=== PATIENT | male | born 1960 | race Caucasian/White ===

== ENCOUNTER → 2019-04-06 11:52 | Outpatient (CLI) | payer BC, SELFPAY ==
--- NOTE | 2019-04-06 12:05 | ECG_ITS ---
APPROVED REPORT Exam: Resting ECG HR:62 bpm ECG Measurements Heart Rate 62 AXES OK 146 P 30 QRSd 108 QRS 53 QT 452 T 72 QTc 458 <Conclusion> Normal sinus rhythm with sinus arrhythmia Normal ECG Electronically signed by : Salvador Pickens, 04/06/2019 18:28:23
== END ==
PROVIDERS: PCP Nurse Practitioner Family; Visit Provider Nurse Practitioner Family
DX: I49.9 Cardiac arrhythmia, unspecified (principal)
CPT/HCPCS: 93005

== ENCOUNTER → 2019-06-23 12:34 | Outpatient (CLI) | payer BC, SELFPAY ==
--- NOTE | 2019-06-23 12:40 | XR_ITS ---
PROCEDURE: XR LUMBAR SPINE MIN 4V CLINICAL INDICATION: ACUTE LT LBP Acute left-sided low back pain COMPARISON: CXR CHEST(2 VIEWS-NOT PORTABLE) from 09/09/2013 FINDINGS: There is slight loss of height anteriorly L1 which appears chronic with degenerative changes in the lower thoracic, T12-L1, L2-L3 L4-5 and L5-S1. There are facet arthritic changes at L5-S1. No acute fracture or dislocation. There is mild sclerosis of the left SI joint partial fusion of the right SI joint.. IMPRESSION: Degenerative changes of the thoracic and lumbar spine and SI joints Dictated by: Ricardo Sandoval MD 06/23/2019 18:24 Electronically signed by Ricardo Sandoval MD in [facility] 06/23/2019 18:24
--- NOTE | 2019-06-23 12:40 | XR_ITS ---
PROCEDURE: XR HIP LT 2-3V W/PELVIS CLINICAL INDICATION: LT HIP PAIN COMPARISON: No exams were available for comparison FINDINGS: No fracture or dislocation is evident. No significant degenerative change. No lytic or blastic change. Unremarkable soft tissues. There are minimal osteoarthritic changes of the left hip as well as mild sclerosis of the mid aspect of the left SI joint. IMPRESSION: Mild osteoarthritic changes of the left hip Dictated by: Ricardo Sandoval MD 06/23/2019 18:25 Electronically signed by Ricardo Sandoval MD in [facility] 06/23/2019 18:25
== END ==
PROVIDERS: PCP Family Medicine; Visit Provider Family Medicine
DX: M25.552 Pain in left hip (principal); M54.5 Low back pain
CPT/HCPCS: 72110; 73502

== ENCOUNTER → 2019-07-20 10:10 | Outpatient (CLI) | payer BC, SELFPAY ==
--- NOTE | 2019-07-20 10:15 | XR_ITS ---
PROCEDURE: XR FOOT RT MIN 3V CLINICAL INDICATION: PAIN OF RT HEEL PAIN Right heel pain COMPARISON: FTR3 FOOT-RT-3 VIEWS from 04/11/2014 FINDINGS: No fracture or dislocation. No lytic or blastic change. There is normal mineralization. Osteoarthritic changes are present at the 1st MTP joint. There is a small calcaneal spur without erosive change. Enthesophyte is present at the Achilles insertion. Small calcific density is present anteriorly at the tarsal metatarsal junction within the soft tissues. There are mild degenerative changes of the ankle. Other findings:None. IMPRESSION: Degenerative changes, no acute finding Dictated by: Ricardo Sandovla MD 07/20/2019 10:51 Electronically signed by Ricardo Sandoval MD in [facility] 07/20/2019 10:51
== END ==
PROVIDERS: PCP Family Medicine; Visit Provider Family Medicine
DX: M79.671 Pain in right foot (principal)
CPT/HCPCS: 73630

== ENCOUNTER 2020-03-26 20:31 | Emergency (ER) | payer BC, SELFPAY ==
[2020-03-26 20:40] VITALS: BP 138/88; PULSE 88; RESP 18; TEMP 36.9; O2SAT 97; BMI 41.3
[2020-03-26 20:41] VITALS: BMI 42.7
--- NOTE | 2020-03-26 20:42 | CT_ITS ---
PROCEDURE: CT ABDOMEN PELVIS W CON CLINICAL INDICATION: RIGHT SIDE PAIN X 3 DAYS, VOMITING Right-sided abdominal pain for 3 days with constipation and vomiting COMPARISON: No exams were available for comparison TECHNIQUE: IV Contrast: 75ML Isovue 370 Oral Contrast None Axial images obtained with sagittal and coronal reformats. All CT scans at the facility use one or more dose reduction, viz: automated exposure control, ma/kV adjustment per patient size (including targeted exams where dose is matched to indication, i.e. head), or iterative reconstruction technique. FINDINGS: The atelectatic changes are present in the right middle lobe. Prior cholecystectomy. The liver, spleen, adrenal glands, pancreas, and kidneys have an unremarkable appearance. No intestinal obstruction or free air. No evidence of appendicitis or diverticulitis. No acute bony anomaly. There is some increased density within the left inguinal canal with some stranding of the fat which could be postsurgical changes/possible small seroma. Scattered small nodes are present in the inguinal areas on both sides. IMPRESSION: 1. No acute finding. 2. Postsurgical changes left inguinal canal with possible small seroma at approximately 16 mm. Dictated by: Ricardo Sandoval MD 03/27/2020 00:07 Ricardo Sandoval MD in [facility] 03/27/2020 00:07
[2020-03-26 20:58] LABS: Basophils # 0.1 K/mm3 (0-0.2); Basophils % 0.9 % (0.1-2.0); Eosinophils # 0.3 K/mm3 (0.0-0.4); Hematocrit 50.5 % (42.0-52.0); Hemoglobin 17.2 g/dL (14.1-18.0); Lymphocytes # 2.6 K/mm3 (0.7-4.5); Lymphocytes % 32.7 % (10-50); Mean Corpuscular HGB Conc 34.1 g/dL (31.8-35.4); Mean Corpuscular Hemoglobin 31.3 pg (27.0-31.2); Mean Corpuscular Volume 91.7 fl (80-94); Mean Platelet Volume 9.1 fl (7.4-10.4); Monocytes # 0.5 K/mm3 (0.1-1.0); Monocytes % 6.2 % (1.7-9.3); Neutrophils # 4.5 K/mm3 (1.8-7.8); Neutrophils % 56.2 % (37.0-80.0); Platelet Count 246 K/mm3 (142-424); Red Blood Count 5.51 M/mm3 (4.60-6.20); Red Cell Distribution Width 13.8 % (11.5-17.5)
--- NOTE | 2020-03-26 21:07 | HMH.EDNVD ---
ED Disposition Clinical Impression: Right-sided chest wall pain Disposition: Home, Self-Care Condition on Discharge: Good Instructions: DI for Acute Abdomen Additional Instructions: use meds and recheck if needed Referrals: Ludwin Hernandez MD [Primary Care Provider] - - Critical Care Critical Care Time: No Attestation: On 03/26/20, the high probability of a clinically significant, sudden or life threatening deterioration of the following system(s) required my full and direct attention, intervention and personal management. The time I documented below is in addition to time spent performing reported procedures but includes the following listed in this critical care notation. Medical Decision Making - Medical Records Medical records reviewed: Yes: I reviewed the patient's medical records. - Julien Inquiry Pt receiving controlled substance: No Vital Signs: 03/26/20 20:40 03/26/20 22:41 03/26/20 23:38 Temperature 98.4 F Temperature Source Oral Pulse Rate [Right] 88 73 75 Respiratory Rate 18 18 18 Blood Pressure [Right Arm] 138/88 135/91 H 143/88 H Blood Pressure Mean [Right Arm] 104 105 106 Blood Pressure Source [Right Arm] Automatic Cuff Blood Pressure Position [Right Arm] Sitting 02 Sat by Pulse Oximetry 97 96 97 Oxygen Delivery Method Room Air Room Air - Lab Data Lab results reviewed: Yes: I reviewed the patient's lab results. Lab Results 03/26/20 20:51: WBC 8.0, RBC 5.51, Hgb 17.2, Hct 50.5, MCV 91.7, MCH 31.3 H, MCHC 34.1, RDW 13.8, Plt Count 246, MPV 9.1, Neut % (Auto) 56.2, Lymph % (Auto) 32.7, [place] % (Auto) 6.2, Eos % (Auto) 4.0, Baso % (Auto) 0.9, Neut # (Auto) 4.5, Lymph # (Auto) 2.6, [place] # (Auto) 0.5, Eos # (Auto) 0.3, Baso # (Auto) 0.1 03/26/20 20:51: Sodium 141, Potassium 3.8, Chloride 104, Carbon Dioxide 26, Anion Gap 14.8, BUN 12, Creatinine 0.90, Estimated Creat Clear 88, Estimated GFR 86, Est GFR ( Amer) 105, Glucose 139 H, Calcium 9.5, Total Bilirubin 0.6, AST 24, ALT 23, Alkaline Phosphatase 63, Total Protein 7.3, Albumin 4.6, Globulin 2.7, Albumin/Globulin Ratio 1.7, Amylase 73, Lipase 94 03/26/20 23:26: Urine Color Yellow, Urine Appearance Clear, Urine pH 6.0, Ur Specific [place] 1.015, Urine Protein Negative, Urine Glucose (UA) 1+, Urine Ketones Negative, Urine Blood Negative, Urine Nitrate Negative, Urine Bilirubin Negative, Urine Urobilinogen 0.2, Ur Leukocyte Esterase Negative, Amorphous Sediment Trace Result diagrams: 03/26/20 20:51 03/26/20 20:51 Orders (Tests/Meds): ED MEDICATIONS Generic Name Dose Route Start Last Admin Trade Name Freq PRN Reason Stop Dose Admin Sodium Chloride 1,000 mls @ 999 mls/hr 03/26/20 20:45 03/26/20 20:49 Sod Chlor 0.9% 1000ml Bag IV 03/26/20 21:45 999 mls/hr .Q1H1M ALMAZ Administration Discontinued Medications Generic Name Dose Route Start Last Admin Trade Name Freq PRN Reason Stop Dose Admin Ketorolac Tromethamine 30 mg 03/26/20 20:43 03/26/20 20:49 Ketorolac 30mg/Ml Vial IV 03/26/20 20:44 30 mg ONCE ONE Administration Methylprednisolone Sodium Succinate 125 mg 03/26/20 22:54 03/26/20 22:58 Methylprednisolone Sod Succ 125mg Vial IV 03/26/20 22:55 125 mg ONCE ONE Administration Morphine Sulfate 4 mg 03/26/20 22:54 03/26/20 22:58 Morphine 4mg/Ml Syringe IV 03/26/20 22:55 4 mg ONCE ONE Administration Ondansetron HCl 4 mg 03/26/20 20:43 03/26/20 20:49 Ondansetron 4mg/2ml Vial IV 03/26/20 20:44 4 mg ONCE ONE Administration Promethazine HCl 25 mg 03/26/20 22:54 03/26/20 22:58 Promethazine Hcl 25mg/Ml 1ml Vial IV 03/26/20 22:55 25 mg ONCE ONE Administration Sodium Chloride 25 ml 03/26/20 22:54 03/26/20 23:09 Sodium Chloride 0.9% 25ml Bag IV 03/26/20 22:55 25 ml ONCE ONE Administration ORDERS Category Date Time Status CT abdomen pelvis w con Stat Cat Scan 03/26/20 20:42 Taken - CT Data CT Scan: Abdomen, Pelvis Time Received: 23:5
[2020-03-26 21:08] LABS: Alanine Aminotransferase 23 U/L (12-78); Albumin Level 4.6 g/dl (3.5-5.0); Albumin/Globulin Ratio 1.7 (1.1-1.8); Alkaline Phosphatase 63 U/L (38-126); Amylase 73 U/L (30-110); Anion Gap 14.8 mEq/L (5-15); Aspartate Amino Transferase 24 U/L (17-59); Bilirubin,Total 0.6 mg/dl (0.2-1.3); Blood Urea Nitrogen 12 mg/dl (9-20); Calcium 9.5 mg/dl (8.4-10.2); Carbon Dioxide 26 mmol/L (22.0-30.0); Chloride 104 mmol/L (98-107); Creatinine Clearance Estimated 88 mL/min (50-200); Estimated Glomerular Filt Rate 86 ml/min (>60); GFR (African American) 105 ML/MIN (>60); Globulin 2.7 g/dL (1.3-3.2); Glucose 139 mg/dl (74-100); Lipase 94 U/L (23-300); Potassium 3.8 mmoL/L (3.5-5.1); Sodium 141 mmol/L (136-145); Total Protein,Serum 7.3 g/dl (6.3-8.2)
[2020-03-26 22:41] VITALS: BP 135/91; PULSE 73; RESP 18; O2SAT 96
[2020-03-26 23:28] LABS: Microscopic, Urine URINE MICROSCOPIC (MICROSCOPIC)
[2020-03-26 23:30] LABS: Appearance,Urine CLEAR (Clear); Bilirubin,Urine Negative (Negative); Blood, Urine Negative (Negative); Color,Urine YELLOW (Yellow); Glucose,Urine (UA) 1+ (Negative); Ketones,Urine Negative (Negative); Leukocyte Esterase,Urine Negative (Negative); Nitrate,Urine Negative (Negative); Protein,Urine Negative (Negative); Specific Gravity, Urine 1.015 (1.005-1.030); Urobilinogen,Urine 0.2 EU/dl (0.2)
[2020-03-26 23:32] LABS: Amorphous Sediment,Urine Trace /lpf
[2020-03-26 23:38] VITALS: BP 143/88; PULSE 75; RESP 18; O2SAT 97
[2020-03-27 00:02] VITALS: BP 142/79; PULSE 81; RESP 16; TEMP 36.8; O2SAT 99
== END 2020-03-27 00:08 | disposition home or self-care (01) ==
PROVIDERS: Emergency Provider Emergency Medicine; PCP Family Medicine
DX: R07.89 Other chest pain (principal); I10 Essential (primary) hypertension; E11.9 Type 2 diabetes mellitus without complications; E78.5 Hyperlipidemia, unspecified; I48.0 Paroxysmal atrial fibrillation; Z79.899 Other long term (current) drug therapy
CPT/HCPCS: 74177; 80053; 81001; 82150; 83690; 85025; 96365; 99282; J2405

== ENCOUNTER 2020-06-19 08:08 | Emergency (ER) | payer BC, SELFPAY ==
[2020-06-19 08:10] VITALS: BP 141/89; PULSE 96; RESP 16; TEMP 37.3; O2SAT 98; BMI 39.0
--- NOTE | 2020-06-19 08:19 | HMH.EDGENADL ---
ED Disposition Clinical Impression: Left otitis media with effusion Disposition: Home, Self-Care Condition on Discharge: Good Instructions: DI for Middle Ear Infection-Adult Additional Instructions: Take antibiotic as prescribed. Follow-up with primary care provider if not improved in 3 to 4 days. Prescriptions: Amoxicillin [Amoxicillin 500mg Cap] 500 mg PO TID #30 cap Transmission Status: Pending to [id number] Referrals: Ludwin Hernandez MD [Primary Care Provider] - - Critical Care Critical Care Time: No Attestation: On 06/19/20, the high probability of a clinically significant, sudden or life threatening deterioration of the following system(s) required my full and direct attention, intervention and personal management. The time I documented below is in addition to time spent performing reported procedures but includes the following listed in this critical care notation. Medical Decision Making - Julien Inquiry Pt receiving controlled substance: No Vital Signs: 06/19/20 08:10 Temperature 99.1 F Temperature Source Oral Pulse Rate [Radial] 96 H Respiratory Rate 16 Blood Pressure [Right Arm] 141/89 H Blood Pressure Mean [Right Arm] 106 Blood Pressure Position [Right Arm] Sitting 02 Sat by Pulse Oximetry 98 Oxygen Delivery Method Room Air General Adult HPI - General Stated complaint: Left ear hurting, cough Time Seen by Provider: 06/19/20 08:19 - History of Present Illness HPI narrative: Coughing congestion, sinus drainage, left earache for about 1 week. Says he feels fluid behind his eardrum around. Says that he gets this once a year at this time of the year each year and usually gets amoxicillin for an ear infection. No fever. He says that he just got out of quarantine for being exposed to COVID-19, his had a. 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 - Related Data Home Medications Medication Instructions Recorded Confirmed atorvastatin 40 mg tablet 40 mg PO DAILY 30 Days #30 tab 02/01/18 10/31/18 colchicine 0.6 mg tablet 0.6 mg PO DAILY 30 Days #30 tab 02/01/18 10/31/18 diltiazem HCl 240 mg 240 mg PO DAILY 30 Days #30 cap 02/01/18 10/31/18 capsule,extended release 24 hr febuxostat 40 mg tablet 40 mg PO DAILY 30 Days #30 tab 02/01/18 10/31/18 isosorbide mononitrate 30 mg 30 mg PO DAILY 30 Days #30 tab 02/01/18 10/31/18 tablet,extended release 24 hr lisinopril 20 mg tablet 20 mg PO DAILY 30 Days #30 tab 02/01/18 10/31/18 rivaroxaban 20 mg tablet 20 mg PO DAILY 30 Days #30 tab 02/01/18 10/31/18 Previous Rx's Medication Instructions Recorded benzonatate 100 mg capsule 100 mg PO TID PRN #30 cap 02/01/18 Amoxicillin [Amoxicillin 500mg 500 mg PO TID #30 cap 06/19/20 Cap] Allergies Allergy/AdvReac Type Severity Reaction Status Date / Time No Known Allergies Allergy Verified 03/26/20 21:08 [facility] History - Hepatitis A Screen Attestation statement:: This patient has been screened for Hepatitis A risk factors. I have reviewed the patient's past medical history: Yes Medical History: Reports:: Atrial Fibrillation, Diabetes Mellitus Type 2, Hyperlipidemia, Hypertension, Lung Disease Denies:: Diabetes Mellitus Type 1, Internal Pacemaker, Seizures Other Medical History: Denies: Blood Transfusion Reaction Comment: GOUT Other Surgeries: Yes: Cardiac Catheterization, Colonoscopy, Hernia Repair. No: Pacemaker Amputation: No Fractures: No - Social History Smoking Status: Never smoker Tobacco Type: smokeless tobacco # Packs/Day (cigarettes): 0 Alcohol Intake: never Substance Use Type: denies use Occupational Status: employed Housing: house Household Members: spouse Family Hx:: Unable to obtain ROS Obtained: Yes Systems reviewed as appropriate & no additional complaints - Constitutional Constitutional: Denies fever(s) - ENT Ears, Nose, Mouth, and Throat: R
[2020-06-19 08:39] VITALS: BP 135/74; PULSE 78; RESP 16; TEMP 36.6; O2SAT 98
== END 2020-06-19 08:40 | disposition home or self-care (01) ==
PROVIDERS: Emergency Provider Emergency Medicine; PCP Family Medicine
DX: H65.92 Unspecified nonsuppurative otitis media, left ear (principal); I10 Essential (primary) hypertension; I48.91 Unspecified atrial fibrillation; E78.5 Hyperlipidemia, unspecified; E11.9 Type 2 diabetes mellitus without complications; Z79.899 Other long term (current) drug therapy
CPT/HCPCS: 99281

== ENCOUNTER → 2020-06-22 13:41 | Outpatient (CLI) | payer BC, SELFPAY ==
[2020-06-22 13:52] LABS: Basophils # 0.1 K/mm3 (0-0.2); Basophils % 1.1 % (0.1-2.0); Eosinophils # 0.3 K/mm3 (0.0-0.4); Eosinophils % 4.4 % (0.1-12.0); Hematocrit 50.6 % (42.0-52.0); Hemoglobin 16.8 g/dL (14.1-18.0); Lymphocytes # 1.7 K/mm3 (0.7-4.5); Mean Corpuscular HGB Conc 33.3 g/dL (31.8-35.4); Mean Corpuscular Volume 93.3 fl (80-94); Mean Platelet Volume 10.4 fl (7.4-10.4); Monocytes # 0.4 K/mm3 (0.1-1.0); Monocytes % 6.8 % (1.7-9.3); Neutrophils # 3.9 K/mm3 (1.8-7.8); Neutrophils % 60.7 % (37.0-80.0); Platelet Count 311 K/mm3 (142-424); Red Blood Count 5.42 M/mm3 (4.60-6.20); Red Cell Distribution Width 14.4 % (11.5-17.5); White Blood Count 6.4 K/mm3 (4.8-10.8)
[2020-06-22 13:57] LABS: Alanine Aminotransferase 28 U/L (12-78); Albumin Level 4.1 g/dl (3.5-5.0); Albumin/Globulin Ratio 1.5 (1.1-1.8); Alkaline Phosphatase 59 U/L (38-126); Anion Gap 10.2 mEq/L (5-15); Aspartate Amino Transferase 35 U/L (17-59); Bilirubin,Total 0.6 mg/dl (0.2-1.3); Blood Urea Nitrogen 8 mg/dl (9-20); Calcium 9.2 mg/dl (8.4-10.2); Carbon Dioxide 31 mmol/L (22.0-30.0); Chloride 101 mmol/L (98-107); Chol/HDL Ratio 7.5 (1-3.5); Cholesterol 196 mg/dl (140-200); Estimated Glomerular Filt Rate 115 ml/min (>60); GFR (African American) 140 ML/MIN (>60); Globulin 2.8 g/dL (1.3-3.2); Glucose 128 mg/dl (74-100); HDL Cholesterol 26 mg/dl (40-60); Potassium 4.2 mmoL/L (3.5-5.1); Sodium 138 mmol/L (136-145); Total Protein,Serum 6.9 g/dl (6.3-8.2); Triglycerides 229 mg/dl (30-150); VLDL Cholesterol 46 mg/dL (0-40)
[2020-06-22 14:13] LABS: 25-OH Vitamin D, Total 22.4 ng/mL (30-100); Free T4 (Free Thyroxine) 1.33 ng/dl (0.78-2.19)
[2020-06-22 14:28] LABS: Prostate Specific Ag Screen 1.1 ng/ml (0.0-4.0); Thyroid Stimulating Hormone 1.21 uIU/mL (0.465-4.68)
[2020-06-23 17:12] LABS: Hemoglobin A1C 6.6 % (4.0-6.0)
== END ==
PROVIDERS: Visit Provider Emergency Medicine
DX: R53.83 Other fatigue (principal); R73.09 Other abnormal glucose; E55.9 Vitamin D deficiency, unspecified
CPT/HCPCS: 80053; 80061; 82306; 83036; 84439; 84443; 85025; G0103

== ENCOUNTER 2020-08-01 05:51 | Inpatient (IN) | payer BC, SELFPAY ==
[2020-08-01] VITALS (26 sets, daily range): BP systolic 101–169; BP diastolic 53–98; PULSE 50–93; RESP 12–22; TEMP 36.1–36.7; O2SAT 93–100; BMI 39.0; BMI 37.2; BMI 37.3
--- NOTE | 2020-08-01 | IR_ITS ---
APPROVED REPORT Patient Location: Emergent Oysterman: KEIRY Whitlock RT (R) PROCEDURES Left heart catheterization Left ventriculogram Selective coronary angiogram Drug-eluting stent deployment to the ramus intermedius Drug-eluting stent deployment to the proximal and mid LAD Drug-eluting stent deployment to the distal right coronary artery's posterior descending artery INDICATION ST elevation myocardial infarction, Coronary artery disease, Clinical history: Patient initially presented with an acute inferior ST elevation myocardial infarction on EKG. Patient was initially treated with standard medications in the emergency department and repeat EKG demonstrated normalization of the EKG with improved chest pain. Despite patient's normalized EKG the chest pain was waxing and waning therefore he was taken to the [facility] emergently for cardiac catheterization Informed consent was obtained prior to the procedure. COMPLICATIONS None Estimated Blood Loss: less than 10 ml. TECHNIQUE One percent lidocaine used to anesthetize the right anterior aspect of the wrist. The right radial artery was accessed via the Seldinger technique. A 6 Turkish sheath was placed in the right radial artery. 2.5 mg of verapamil, 800 mcg of nitroglycerin, 1mg Lidocaine and 5000 U Heparin were given through the arterial sheath. The Poppa catheter was also used to perform left heart catheterization, left ventriculogram and selective coronary angiogram. At the end of the diagnostic procedure therapeutic heparin was administered and a Choice PT wire was placed in the ramus intermedius. A 2.25 x 12 mm resolute Tuttle stent was deployed at 20 surya reducing the critical stenosis to 0%. GENNA-3 flow was present before and after the procedure. The wire was pulled back and placed into the LAD where primary stenting could not be performed due to the stenosis severity. A 2.5 x 20 mm balloon was used to predilate the mid LAD and a 3 mm x 38 mm resolute Harsha stent was deployed at 14 surya reducing the critical stenosis to 0%. A 3.5 x 20 mm noncompliant balloon was then placed into the proximal portion of the stent and deployed at 20 surya further post dilating. GENNA-3 flow was present before and after the procedure. Following this the catheter was then placed in the right coronary artery and the Choice PT wire was placed distally. A 2 mm x 12 mm resolute Harsha stent was deployed in the posterior descending artery at 20 surya reducing the critical stenosis to 0%. GENNA II flow was present at the beginning of the procedure with GENNA-3 flow at the end of the procedure. At the end of the procedure the apparatus was removed the sheath was removed good hemostasis was achieved using TR banding patient was transferred to the postop holding area in stable condition ANGIOGRAPHIC RESULTS The left main artery Has mid vessel and distal 10 to 20% stenosis The left anterior descending artery Has proximal 80% stenosis followed by mid vessel 90% stenosis. The circumflex artery Is a codominant large vessel with a proximal 30 to 40% stenosis The right coronary artery Is a large codominant vessel and has proximal diffuse 30% atheromatous disease which extends into the mid segment with 30% stenoses. A long posterior descending artery has a mid vessel focal greater than 90% stenosis accompanied by GENNA II flow. Following the procedure GENNA-3 flow was present The OSMAN ventriculogram reveals Normal 65% The left ventricular end-diastolic pressure 20 mmHg IMPRESSION Severe three-vessel coronary artery disease as described above involving the LAD ramus intermedius and right coronary artery with mild to moderate disease in a codominant large circumflex artery
--- NOTE | 2020-08-01 05:51 | ECG_ITS ---
APPROVED REPORT Exam: Resting ECG HR:72 bpm ECG Measurements Heart Rate 72 AXES AR 136 P 26 QRSd 98 QRS 43 QT 406 T 86 QTc 444 Conclusion Normal sinus rhythm with sinus arrhythmia Nonspecific ST abnormality Abnormal ECG Electronically signed by : Gus Figueroa, 08/02/2020 19:40:36
--- NOTE | 2020-08-01 06:04 | ECG_ITS ---
APPROVED REPORT Exam: Resting ECG HR:82 bpm ECG Measurements Heart Rate 82 AXES MO 138 P 22 QRSd 94 QRS 35 QT 396 T 72 QTc 462 Conclusion Normal sinus rhythm Normal ECG Electronically signed by : Gus Figueroa, 08/02/2020 19:40:29
--- NOTE | 2020-08-01 06:04 | XR_ITS ---
PROCEDURE: XR CHEST PORTABLE CLINICAL HISTORY: cp Chest pain COMPARISON: CR CXR CHEST(2 VIEWS-NOT PORTABLE) from 11/13/2012 CR CXR CHEST(2 VIEWS-NOT PORTABLE) from 09/09/2013 FINDINGS: The cardiomediastinal silhouette and pulmonary vascularity are within normal limits. There are low lung volumes. No lobar consolidation or collapse. No acute bony abnormalities. IMPRESSION: No acute findings. Dictated by: Ricardo Sandoval MD 08/01/2020 06:17 Ricardo Sandoval MD in [place] 08/01/2020 06:17
[2020-08-01 06:11] LABS: Basophils # 0.1 K/mm3 (0-0.2); Basophils % 1.3 % (0.1-2.0); Eosinophils # 0.3 K/mm3 (0.0-0.4); Eosinophils % 3.4 % (0.1-12.0); Hematocrit 49.4 % (42.0-52.0); Hemoglobin 16.3 g/dL (14.1-18.0); Lymphocytes # 2.9 K/mm3 (0.7-4.5); Lymphocytes % 37.8 % (10-50); Mean Corpuscular HGB Conc 32.9 g/dL (31.8-35.4); Mean Corpuscular Hemoglobin 30.5 pg (27.0-31.2); Mean Corpuscular Volume 92.5 fl (80-94); Mean Platelet Volume 9.1 fl (7.4-10.4); Monocytes # 0.4 K/mm3 (0.1-1.0); Monocytes % 5.6 % (1.7-9.3); Neutrophils % 51.9 % (37.0-80.0); Platelet Count 256 K/mm3 (142-424); Red Blood Count 5.34 M/mm3 (4.60-6.20); Red Cell Distribution Width 14.6 % (11.5-17.5); White Blood Count 7.7 K/mm3 (4.8-10.8)
[2020-08-01 06:16] LABS: Alanine Aminotransferase 27 U/L (12-78); Albumin Level 4.3 g/dl (3.5-5.0); Alkaline Phosphatase 72 U/L (38-126); Aspartate Amino Transferase 32 U/L (17-59); Bilirubin,Indirect 0.8 mg/dL (0.0-0.9); Bilirubin,Total 0.8 mg/dl (0.2-1.3); Bilirubin,Unconjugated 0.9 mg/dL (0.0-1.1); Total Protein,Serum 7.3 g/dl (6.3-8.2)
[2020-08-01 06:17] LABS: Anion Gap 11.3 mEq/L (5-15); Blood Urea Nitrogen 6 mg/dl (9-20); Calcium 9.4 mg/dl (8.4-10.2); Carbon Dioxide 29 mmol/L (22.0-30.0); Chloride 104 mmol/L (98-107); Creatinine Clearance Estimated 143 mL/min (50-200); Estimated Glomerular Filt Rate 76 ml/min (>60); GFR (African American) 93 ML/MIN (>60); Glucose 145 mg/dl (74-100); Potassium 4.3 mmoL/L (3.5-5.1); Sodium 140 mmol/L (136-145)
--- NOTE | 2020-08-01 06:17 | PC.NURSE ---
Addendum entered by Truman Connor RN 08/01/20 06:26: Orders for 180mg brilinta as well. Original Note: spoke with in regards to initial EKG. Murali requests to give nitro and morphine to try and relieve pain then repeat EKG. Pt states no relief after morphine and nitro. Murali did not want STEMI alert called and he will consult with pt when he arrives. Pt remains stable at this time. Nitro drip orders received from . Nitro drip started at 5mcg/min.
--- NOTE | 2020-08-01 06:24 | HMH.EDCP ---
ED Disposition Clinical Impression: Unstable angina pectoris, Obesity (BMI 30-39.9) Diabetes mellitus Qualifiers: Diabetes mellitus type: type 2 Diabetes mellitus shelter insulin use: unspecified shelter insulin use status Diabetes mellitus complication status: with other specified complication Qualified Code(s): E11.69 - Type 2 diabetes mellitus with other specified complication Hyperlipidemia Qualifiers: Hyperlipidemia type: unspecified Qualified Code(s): E78.5 - Hyperlipidemia, unspecified HTN (hypertension) Qualifiers: Hypertension type: essential hypertension Qualified Code(s): I10 - Essential (primary) hypertension Disposition: Admitted As Inpatient Condition on Discharge: Serious Referrals: Nino Velez MD [Primary Care Provider] - - Critical Care Critical Care Time: No Attestation: On 08/01/20, the high probability of a clinically significant, sudden or life threatening deterioration of the following system(s) required my full and direct attention, intervention and personal management. The time I documented below is in addition to time spent performing reported procedures but includes the following listed in this critical care notation. Medical Decision Making - Medical Records Medical records reviewed: Yes: I reviewed the patient's medical records. - Julien Inquiry Pt receiving controlled substance: No Vital Signs: 08/01/20 05:51 Temperature 98.0 F Temperature Source Oral Pulse Rate [Apical] 75 Respiratory Rate 22 Blood Pressure [Right Arm] 169/98 H Blood Pressure Mean [Right Arm] 121 Blood Pressure Source [Right Arm] Automatic Cuff Blood Pressure Position [Right Arm] Supine 02 Sat by Pulse Oximetry 97 Oxygen Delivery Method Room Air - Lab Data Lab results reviewed: Yes: I reviewed the patient's lab results. Lab Results 08/01/20 05:55: WBC 7.7, RBC 5.34, Hgb 16.3, Hct 49.4, MCV 92.5, MCH 30.5, MCHC 32.9, RDW 14.6, Plt Count 256, MPV 9.1, Neut % (Auto) 51.9, Lymph % (Auto) 37.8, [place] % (Auto) 5.6, Eos % (Auto) 3.4, Baso % (Auto) 1.3, Neut # (Auto) 4.0, Lymph # (Auto) 2.9, [place] # (Auto) 0.4, Eos # (Auto) 0.3, Baso # (Auto) 0.1 Result diagrams: 08/01/20 05:55 Orders (Tests/Meds): ED MEDICATIONS Generic Name Dose Route Start Last Admin Trade Name Freq PRN Reason Stop Dose Admin Nitroglycerin/Dextrose 250 mls @ 1.5 mls/hr 08/01/20 06:15 08/01/20 06:12 Nitroglycerin 50mg/250ml D5w IV 08/31/20 06:14 5 mcg/min .Q24H ALMAZ 1.5 mls/hr Administration Protocol 5 MCG/MIN Nitroglycerin 0.4 mg 08/01/20 06:04 08/01/20 06:03 Nitroglycerin 0.4mg Sl Tablet SL 08/31/20 06:03 0.4 mg Q5MINP PRN Administration Chest Pain Sodium Chloride 8 ml 08/01/20 06:14 Sodium Chloride 0.9% 10ml Vial IV 08/31/20 06:13 NEEDED PRN dilute pepcid Discontinued Medications Generic Name Dose Route Start Last Admin Trade Name Freq PRN Reason Stop Dose Admin Aspirin 324 mg 08/01/20 06:04 08/01/20 05:51 Aspirin 81mg Chewable Tablet PO 08/01/20 06:05 324 mg ONCE ONE Administration Famotidine 20 mg 08/01/20 06:14 Famotidine 20mg/2ml Vial IV 08/01/20 06:15 ONCE ONE Metoclopramide HCl 10 mg 08/01/20 06:14 Metoclopramide Hcl 10mg/2ml Vial IVP 08/01/20 06:15 ONCE ONE Morphine Sulfate 4 mg 08/01/20 06:05 08/01/20 06:06 Morphine 4mg/Ml Syringe IV 08/01/20 06:06 4 mg ONCE ONE Administration Nitroglycerin 1 gm 08/01/20 06:10 Nitroglycerin 1 Gm Ointment TD 08/01/20 06:11 ONCE ONE Ticagrelor 180 mg 08/01/20 06:10 08/01/20 06:12 Ticagrelor 90mg Tablet PO 08/01/20 06:11 180 mg ONCE ONE Administration ORDERS Category Date Time Status Basic Metabolic Panel Stat Lab 08/01/20 05:55 Received Full Resp Panel w/COVID ([facility]) Routine Lab 08/01/20 06:15 Ordered Liver Panel Stat Lab 08/01/20 05:55 Received Troponin I Q3H Lab 08/01/20 09:15 Ordered Troponin I Q3H Lab
--- NOTE | 2020-08-01 06:27 | PC.NURSE ---
Pt's bilateral wrists trimmed as well as groins.
[2020-08-01 06:29] LABS: Adenovirus,PCR Not Detected (NotDetected); Bordetella Pertussis Not Detected (NotDetected); Chlamydophila Pneumoniae, PCR Not Detected (NotDetected); Coronavirus 229E Not Detected (NotDetected); Coronavirus NL63 Not Detected (NotDetected); Coronavirus OC43 Not Detected (NotDetected); Coronovirus HKU1,PCR Not Detected (NotDetected); Human Metapneumovirus Not Detected (NotDetected); Influenza A, PCR Not Detected (NotDetected); Influenza AH1, 2009 Not Detected (NotDetected); Influenza AH1, PCR Not Detected (NotDetected); Influenza AH3,PCR Not Detected (NotDetected); Influenza B, PCR Not Detected (NotDetected); Mycoplasma Pneumoniae, PCR Not Detected (NotDetected); Parainfluenza 1, PCR Not Detected (NotDetected); Parainfluenza 2, PCR Not Detected (NotDetected); Parainfluenza 3, PCR Not Detected (NotDetected); Parainfluenza 4, PCR Not Detected (NotDetected); Respiratory Syncytial Virus Not Detected (NotDetected); Rhinovirus/Enterovirus Not Detected (NotDetected)
--- NOTE | 2020-08-01 06:29 | ECG_ITS ---
APPROVED REPORT Exam: Resting ECG HR:71 bpm ECG Measurements Heart Rate 71 AXES [place] 142 P 27 QRSd 102 QRS 31 QT 406 T 76 QTc 441 Conclusion Normal sinus rhythm Normal ECG Electronically signed by : Gus Figueroa, 08/02/2020 19:40:22
--- NOTE | 2020-08-01 06:32 | PC.NURSE ---
Pt rates pain 7 out of 10 at this time
[2020-08-01 06:33] LABS: Troponin I < 0.01 ng/ml (0.00-0.034)
--- NOTE | 2020-08-01 06:35 | PC.NURSE ---
Addendum entered by Truman Connor RN 08/01/20 06:46: 0647- Pt rates pain at 6 out of 10. Nitro increased to 25mcg/min Addendum entered by Truman Connor RN 08/01/20 06:41: 0640- Pt reports pain easing up a little bit Nitro increased to 20mcg/min Original Note: 0625-nitro drip increased to 10mcg/min 0634- nitro increased to 15mcg/min
--- NOTE | 2020-08-01 06:37 | PC.NURSE ---
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 Will attempt again.
--- NOTE | 2020-08-01 06:44 | PC.NURSE ---
Admissions notified of need for superintendent geophysical laboratory team to be paged at [phone].
--- NOTE | 2020-08-01 06:47 | PC.NURSE ---
Emely Morrow RN returned call at [phone].
--- NOTE | 2020-08-01 06:48 | PC.NURSE ---
Gloria Barrera RN returned called at [phone].
[2020-08-01 07:00] LABS: Chol/HDL Ratio 6.4 (1-3.5); Cholesterol 217 mg/dl (140-200); HDL Cholesterol 34 mg/dl (40-60); Triglycerides 245 mg/dl (30-150); VLDL Cholesterol 49 mg/dL (0-40)
--- NOTE | 2020-08-01 07:01 | PC.NURSE ---
Pain currently 8 out of 10. Increasing Nitro to 30mcg/min and giving 4mg morphine per Rosie
[2020-08-01 07:11] LABS: Direct LDL Cholesterol 123.08 mg/dL (100-129)
[2020-08-01 07:14] LABS: Coronavirus 19 IgG Antibody Positive (Negative); Coronavirus 19 IgM Antibody Positive (Negative)
--- NOTE | 2020-08-01 07:22 | PC.NURSE ---
lab called advising pt igg and igm were both positive, skilled labor advised.
[2020-08-01 07:33] LABS: Hemoglobin A1C 7.1 % (4.0-6.0)
[2020-08-01 08:52] LABS: CATHL Activated Clotting Time > 400 SEC (74-125)
[2020-08-01 08:59] LABS: Coronavirus 19, PCR Detected (NotDetected)
--- NOTE | 2020-08-01 09:41 | HMH.CNCARD ---
History of Present Illness Consult date: 08/01/20 Requesting physician: Nino Velez Consult reason: chest pain Chief complaint: chest pain Additional Medical History:: [facility] shows: Severe three-vessel coronary artery disease as described above involving the LAD ramus intermedius and right coronary artery with mild to moderate disease in a codominant large circumflex artery ST elevation myocardial infarction involving the right coronary artery with successful stenting of the posterior descending artery reducing the critical stenosis to 0% Successful stenting of the proximal to mid LAD severe disease reduced to 0% with 1 drug-eluting stent Successful stenting of the proximal ramus intermedius critical disease reduced to 0% with 1 drug-eluting stent Normal ejection fraction Mildly elevated LVEDP PLAN 1. Brilinta 90 twice daily plus aspirin 81 mg daily 2. LDL less than 55 3. Cardiac rehabilitation 4. Supportive care 5. Standard therapy for ischemic heart disease 6. Aggressive risk factor modification 7. Avoidance of all tobacco products History of present illness: This is a 59 year old gentleman that was admitted to the hospital for a STEMI. he reported mid sternum chest pain that radiated to his L arm. this was a pressure sensation. it started around 4:45am. this was an 8/10 in intensity. Some SOA noted with the chest pain. worse with exertion. nothing improved pain. denies N/V or diaphoresis. pt with known DM, htn, hld, and afib. patient was taken directly to the manufacturing laborer and had stenting to the LAD, ramus and PDA. tolerated the procedure well. denies fever, chills, n/v/d, pnd, orthopnea or edema. [facility] History I have reviewed the patient's past medical history: Yes Medical History: Reports:: Atrial Fibrillation, Diabetes Mellitus Type 2, Hyperlipidemia, Hypertension, Lung Disease Denies:: Diabetes Mellitus Type 1, Internal Pacemaker, Seizures *Have you ever received a pneumonia vaccine?: No *Have you received a flu vaccine this season?: No Other Medical History: Denies: Blood Transfusion Reaction Other Surgeries: Yes: Cardiac Catheterization, Cardiac Surgery, Colonoscopy, Hernia Repair. No: Pacemaker Amputation: No Fractures: No - *Social History Smoking Status: Never smoker Tobacco Type: smokeless tobacco # Packs/Day (cigarettes): 0 Alcohol Intake: never Substance Use Type: denies use *Occupational Status:: employed Housing: house Household Members: spouse *Travel in the last 8 weeks: None Family Hx:: Heart Attack, Coronary Artery Disease, Diabetes, Hypertension Meds Home Medications Medication Instructions Recorded Confirmed Type atorvastatin 40 mg tablet 40 mg PO DAILY 30 Days #30 tab 02/01/18 10/31/18 History colchicine 0.6 mg tablet 0.6 mg PO DAILY 30 Days #30 tab 02/01/18 10/31/18 History diltiazem HCl 240 mg 240 mg PO DAILY 30 Days #30 cap 02/01/18 10/31/18 History capsule,extended release 24 hr febuxostat 40 mg tablet 40 mg PO DAILY 30 Days #30 tab 02/01/18 10/31/18 History isosorbide mononitrate 30 mg 30 mg PO DAILY 30 Days #30 tab 02/01/18 10/31/18 History tablet,extended release 24 hr lisinopril 20 mg tablet 20 mg PO DAILY 30 Days #30 tab 02/01/18 10/31/18 History rivaroxaban 20 mg tablet 20 mg PO DAILY 30 Days #30 tab 02/01/18 08/01/20 History Blood Sugar Diagnostic [Accu-Chek See Rx Instructions .ROUTE 08/01/20 History Guide test strips] .MEDSUPPLY Blood-Glucose Meter [Blood Glucose See Rx Instructions .ROUTE 08/01/20 History Meter] .MEDSUPPLY Cholecalciferol (Vitamin D3) 25 mcg PO DAILY 08/01/20 History [Vitamin D3 1,000 Unit Cap] Ergocalciferol (Vitamin D2) 1,250 mcg PO WEEKLY 08/01/20 History [Drisdol] Lancets See Rx Instructions .ROUTE 08/01/20 History .MEDSUPPLY Metformin HCl [Glucophage Xr] 500 mg PO DAILY 08/01/20 History Allergies Allergy/AdvReac Type Severity Reaction Status Date / Time No Known Allergies Allergy Verified 06/22/20 10:14 Exam Vital
--- NOTE | 2020-08-01 09:57 | CA_ITS ---
APPROVED REPORT EXAM: Comprehensive 2D, Doppler, and color-flow Echocardiogram Realty Loan Specialist: Mónica Mendez, RT(R) Ht: 5 ft 11 in Wt: 280lbs BSA: 2.43 BP: 108/75 mmHg Indications: COVID, STEMI, 3 stents today, AFIB, CP, smoker, SOB, obesity, hyperlipidemia, CAD 2D Dimensions LVOT 2.17 cm (M/F) 1.5-2.5 M-Mode Dimensions RVDd 2.33 cm (0.9-2.6) LA Diam 3.55 cm (1.9-4.0) LVDd 5.35 cm (3.5-5.7) Ao Diam 3.39 cm (2.0-3.7) LVDs 3.30 cm (3.5-5.7) IVSd 1.45 cm (0.6-1.1) PWd 0.96 cm (0.6-1.1) EF (Teich) 68.10% FS 38.30% EDV (Teich) 138.30 mL ESV (Teich) 44.10 mL LV Diastology E Decel Time 207.00 (160-240 msec) E/A Ratio 0.8 MED E' 7.80 (< 7 cm/sec) E'/MED E' Ratio 8.69 (>14) LAT E' 10.00 (<10 cm/sec) E/LAT E' Ratio 6.78 (>14) Mitral Valve MV E Max Babatunde. 68.00 (40-130 cm/s) MV A Velocity 85.00 (40-130 cm/s) E/A Ratio 0.80 MV Decel. Time 207.00 (160-240 ms) MV PHT 61.00 ms Left Ventricle Technically difficult study because of the patient factors and poor acoustic windows, left atrium is mildly enlarged, left ventricle is normal size, mild concentric left ventricular hypertrophy, visually estimated ejection fraction 50%, inferior basal wall appears to be hypokinetic as compared to the rest of the myocardial segments. Diastolic parameters are inconclusive. Right Ventricle Right atrium and right ventricle are mildly enlarged with normal contractility. Aortic Valve Aortic valve is minimally thickened and fibrosed, there is no aortic stenosis or aortic insufficiency. Mitral Valve Mitral valve is grossly normal, there is mild mitral regurgitation. Tricuspid Valve Tricuspid valve grossly normal, there is mild tricuspid regurgitation, tricuspid regurgitation jet velocity is inadequate for calculation of the right ventricular systolic pressure. Pulmonic Valve Pulmonic valve is poorly visualized. Great Vessels Aortic root is normal size. Pericardium No significant pericardial effusion noted. Conclusion 1. Technically difficult study because of the patient factors and poor acoustic windows. 2. Mildly enlarged left atrium, normal left ventricular size, mild concentric left ventricular hypertrophy, visually estimated ejection fraction 50% with segmental wall motion abnormality described above, diastolic parameters are inconclusive. Endocardial surfaces are very poorly visualized. 3. Mildly enlarged right ventricle with normal contractility. 4. Mild mitral and tricuspid regurgitation. 5. No significant pericardial effusion noted. Electronically signed by : Ryland Richter, 08/01/2020 20:54:42
[2020-08-01 11:41] LABS: POC Glucose,Bedside 127 (70-110)
--- NOTE | 2020-08-01 12:54 | HMH.HP ---
*Admission Date: 08/01/20 *Chief complaint: chest pain *History of present illness: this pt presented to the ed with chest pain which started this am - he had pain in the last few days but this was worse and more intense - he was given ntg and pain meds in the ed but continued to have chest pain with abn ekg and was taken to operations label clerk [facility] History I have reviewed the patient's past medical history: Yes Medical History: Reports:: Atrial Fibrillation, Diabetes Mellitus Type 2 (BORDERLINE), Hyperlipidemia, Hypertension, Lung Disease Denies:: Cancer, Diabetes Mellitus Type 1, Internal Pacemaker, Seizures *Have you ever received a pneumonia vaccine?: Yes *Have you received a flu vaccine this season?: Yes Other Medical History: Denies: Blood Transfusion Reaction Other Surgeries: Yes: Cardiac Catheterization, Cardiac Surgery, Colonoscopy, Hernia Repair. No: Pacemaker Amputation: No Fractures: No - *Social History Last grade of school completed: High school graduate Smoking Status: Never smoker Tobacco Type: smokeless tobacco # Packs/Day (cigarettes): 0 Alcohol Intake: never Substance Use Type: denies use *Occupational Status:: employed Housing: house Household Members: spouse *Travel in the last 8 weeks: None Family Hx:: Heart Attack, Coronary Artery Disease, Diabetes, Hypertension Review of Systems - Review of Systems Review of systems:: pertinent systems reviewed and negative unless documented below - Constitutional Denies fever(s) - Eyes Denies blurry vision - ENT Denies sore throat - *Cardiovascular Reports chest pain, Reports chest pain at rest - *Respiratory Denies cough - *Gastrointestinal Denies abdominal pain - *Genitourinary Denies blood in urine - *Musculoskeletal Denies joint pain - Integumentary/Breasts Denies rash - *Neurologic Denies seizure-like activity - Psychiatric Denies confusion Meds Home Medications Medication Instructions Recorded Confirmed Type atorvastatin 40 mg tablet 40 mg PO HS 30 Days #30 tab 02/01/18 08/01/20 History diltiazem HCl 240 mg 240 mg PO DAILY 30 Days #30 cap 02/01/18 08/01/20 History capsule,extended release 24 hr febuxostat 40 mg tablet 40 mg PO DAILY PRN 30 Days #30 tab 02/01/18 08/01/20 History isosorbide mononitrate 30 mg 30 mg PO DAILY 30 Days #30 tab 02/01/18 08/01/20 History tablet,extended release 24 hr rivaroxaban 20 mg tablet 20 mg PO DAILY 30 Days #30 tab 02/01/18 08/01/20 History Cholecalciferol (Vitamin D3) 1,000 unit PO DAILY 08/01/20 08/01/20 History [Vitamin D3 1,000 Unit Cap] Cholecalciferol (Vitamin D3) 50,000 unit PO WEEKLY 08/01/20 08/01/20 History [Vitamin D3 50,000 unit Cap] Colchicine 0.6 mg PO DAILYP PRN 08/01/20 08/01/20 History Ergocalciferol (Vitamin D2) 10 mcg PO DAILY 08/01/20 08/01/20 History [Vitamin D2] Metformin HCl [Glucophage Xr] 500 mg PO DAILY 08/01/20 08/01/20 History lisinopriL [Lisinopril] 20 mg PO DAILY 08/01/20 08/01/20 History Allergies Allergy/AdvReac Type Severity Reaction Status Date / Time No Known Allergies Allergy Verified 06/22/20 10:14 Exam Vital signs and Labs for Last 24 Hours: Temp Pulse Resp BP Pulse Ox 97 F L 63 13 108/75 L 97 08/01/20 08:40 08/01/20 09:10 08/01/20 09:10 08/01/20 09:10 08/01/20 10:58 Laboratory Results - last 24 hr 08/01/20 05:55: WBC 7.7, RBC 5.34, Hgb 16.3, Hct 49.4, MCV 92.5, MCH 30.5, MCHC 32.9, RDW 14.6, Plt Count 256, MPV 9.1, Neut % (Auto) 51.9, Lymph % (Auto) 37.8, [place]ke % (Auto) 5.6, Eos % (Auto) 3.4, Baso % (Auto) 1.3, Neut # (Auto) 4.0, Lymph # (Auto) 2.9, Parke # (Auto) 0.4, Eos # (Auto) 0.3, Baso # (Auto) 0.1 08/01/20 05:55: Sodium 140, Potassium 4.3, Chloride 104, Carbon Dioxide 29, Anion Gap 11.3, BUN 6 L, Creatinine 1.00, Estimated Creat Clear 143, Estimated GFR 76, Est GFR ( Amer) 93, Glucose 145 H, Calcium 9.4, Troponin I < 0.01 08/01/20 05:55: Total Bilirubin 0.8, Direct Bilirubin 0.0, Conjugated Bilirubin 0.0, In
--- NOTE | 2020-08-01 15:24 | HMH.PHAVTE ---
[facility] VTE Monitoring - Patient Demographics Admission date: 08/01/20 Report Date: 08/01/20 Time: 15:24 Allergies/Adverse Reactions: Patient Allergies No Known Allergies Allergy (Verified 06/22/20 10:14) Height: 1.8 m Weight: 121 kg Patient Problems: Current Active Problems Unstable angina pectoris (Acute) Obesity (BMI 30-39.9) (Chronic) Hyperlipidemia (Chronic) HTN (hypertension) (Chronic) STEMI (ST elevation myocardial infarction) (Acute) Atrial fibrillation (Chronic) Diabetes mellitus (Chronic) - VTE Risk Labs: VTE Related Lab Results Hgb 16.3 g/dL (14.1-18.0) 08/01/20 05:55 Hct 49.4 % (42.0-52.0) 08/01/20 05:55 Plt Count 256 K/mm3 (142-424) 08/01/20 05:55 BUN 6 mg/dl (9-20) L 08/01/20 05:55 Creatinine 1.00 mg/dl (0.66-1.25) 08/01/20 05:55 Estimated Creat Clear 143 mL/min (50-200) 08/01/20 05:55 Was VTE Risk Assessment Performed: Yes VTE Score: 3 VTE Risk Level: Low Risk - Prophylaxis VTE Prophylaxis Ordered?: Yes Types of VTE Prophylaxis: Pharmacological Pharmacologic Type: Other (XARELTO)
--- NOTE | 2020-08-01 16:02 | HMH.PHAINT ---
Patient states he just started taking all his medications again this week. All medications except metformin were last filled 09/2019 per [facility].
--- NOTE | 2020-08-01 16:21 | PC.NURSE ---
Addendum entered by Shira Tapia RN 08/01/20 17:27: Pt has been NSR/Sinus Juve on tele this shift. Original Note: Pt has slept majority of this shift. Lung sounds CTA. Dry, nonr=productive cough noted intermittently. Speci cup placed at pt's bedside, and pt is aware for the need of a sputum sample. Rt radial cath site remains free of hematoma or bleeding, telfa pad and tegaderm applied to cath site this shift. Pt has urinated clear, dark yellow this shift. VSS. No other acute changes or complaints at this time.
[2020-08-01 17:16] LABS: POC Glucose,Bedside 125 (70-110)
[2020-08-01 21:41] LABS: POC Glucose,Bedside 159 (70-110)
[2020-08-02] VITALS: BP 107/69; PULSE 62; RESP 14; TEMP 36.6; O2SAT 97
[2020-08-02 01:15] VITALS: PULSE 70
[2020-08-02 04:00] VITALS: BP 124/73; PULSE 60; PULSE 72; RESP 14; TEMP 36.7; O2SAT 96
--- NOTE | 2020-08-02 04:17 | PC.NURSE ---
shift summary pts lung sounds are clear but slightly diminished with sats maintained 95% or above on room air with a rate ranging from 14-18. pt is alert and oriented X4. pt uses bedside urinal, urine is clear and yellow in color. pt denies pain, nausea, vomiting, and diarrhea.
[2020-08-02 05:00] VITALS: BMI 37.2
[2020-08-02 05:37] LABS: POC Glucose,Bedside 136 (70-110)
[2020-08-02 06:26] LABS: Alanine Aminotransferase 27 U/L (12-78); Albumin Level 3.8 g/dl (3.5-5.0); Albumin/Globulin Ratio 1.5 (1.1-1.8); Alkaline Phosphatase 64 U/L (38-126); Anion Gap 10.9 mEq/L (5-15); Aspartate Amino Transferase 38 U/L (17-59); Basophils # 0.1 K/mm3 (0-0.2); Basophils % 0.9 % (0.1-2.0); Bilirubin,Total 0.8 mg/dl (0.2-1.3); Blood Urea Nitrogen 9 mg/dl (9-20); Calcium 8.8 mg/dl (8.4-10.2); Carbon Dioxide 24 mmol/L (22.0-30.0); Chloride 107 mmol/L (98-107); Creatinine Clearance Estimated 151 mL/min (50-200); Eosinophils # 0.2 K/mm3 (0.0-0.4); Eosinophils % 2.6 % (0.1-12.0); Estimated Glomerular Filt Rate 86 ml/min (>60); GFR (African American) 105 ML/MIN (>60); Globulin 2.5 g/dL (1.3-3.2); Glucose 134 mg/dl (74-100); Hematocrit 44.5 % (42.0-52.0); Hemoglobin 15.3 g/dL (14.1-18.0); Lymphocytes # 1.9 K/mm3 (0.7-4.5); Lymphocytes % 23.1 % (10-50); Mean Corpuscular HGB Conc 34.3 g/dL (31.8-35.4); Mean Corpuscular Volume 90.5 fl (80-94); Mean Platelet Volume 9.3 fl (7.4-10.4); Monocytes # 0.4 K/mm3 (0.1-1.0); Monocytes % 4.6 % (1.7-9.3); Neutrophils # 5.6 K/mm3 (1.8-7.8); Neutrophils % 68.8 % (37.0-80.0); Platelet Count 223 K/mm3 (142-424); Potassium 3.9 mmoL/L (3.5-5.1); Red Blood Count 4.92 M/mm3 (4.60-6.20); Red Cell Distribution Width 14.7 % (11.5-17.5); Sodium 138 mmol/L (136-145); Total Protein,Serum 6.3 g/dl (6.3-8.2); White Blood Count 8.2 K/mm3 (4.8-10.8)
[2020-08-02 07:24] LABS: Magnesium 1.9 mg/dl (1.6-2.3)
[2020-08-02 08:00] VITALS: BP 146/77; PULSE 82; PULSE 89; PULSE 90; RESP 18; TEMP 36.8; O2SAT 95
[2020-08-02 11:16] LABS: POC Glucose,Bedside 106 (70-110)
--- NOTE | 2020-08-02 11:22 | HMH.PNCARD ---
Subjective Date: 08/02/20 Time: 11:15 Principal diagnosis: stemi Interval history: This is a 59-year-old white gentleman who was admitted to the hospital for an inferior STEMI. The patient underwent stenting to the PDA, LAD and ramus arteries yesterday. He tolerated these procedures well and was loaded with Brilinta. His Brilinta has since been changed to Plavix since he is on Xarelto for long-term anticoagulation secondary to paroxysmal atrial fibrillation. He has tolerated these blood thinners well. He denies any chest pain or pressure today. He denies any shortness of breath or edema. He denies any fever, chills, nausea, vomiting, diarrhea, PND orthopnea. The patient states that he is ready to go home. He just found out that his grandmother last night and would really like to get home to his family. Exam Vital signs and Labs for Last 24 Hours: Temp Pulse Resp BP Pulse Ox 98.2 F 89 18 146/77 H 95 08/02/20 08:00 08/02/20 08:00 08/02/20 08:00 08/02/20 08:00 08/02/20 08:00 Laboratory Results - last 24 hr 08/01/20 11:33: POC Glucose 127 H 08/01/20 16:41: POC Glucose 125 H 08/01/20 21:16: POC Glucose 159 H 08/02/20 05:20: WBC 8.2, RBC 4.92, Hgb 15.3, Hct 44.5, MCV 90.5, MCH 31.0, MCHC 34.3, RDW 14.7, Plt Count 223, MPV 9.3, Neut % (Auto) 68.8, Lymph % (Auto) 23.1, [place] % (Auto) 4.6, Eos % (Auto) 2.6, Baso % (Auto) 0.9, Neut # (Auto) 5.6, Lymph # (Auto) 1.9, [place] # (Auto) 0.4, Eos # (Auto) 0.2, Baso # (Auto) 0.1 08/02/20 05:20: Magnesium 1.9 08/02/20 05:20: Sodium 138, Potassium 3.9, Chloride 107, Carbon Dioxide 24, Anion Gap 10.9, BUN 9 D, Creatinine 0.90, Estimated Creat Clear 151, Estimated GFR 86, Est GFR ( Amer) 105, Glucose 134 H, Calcium 8.8, Total Bilirubin 0.8, AST 38, ALT 27, Alkaline Phosphatase 64, Total Protein 6.3, Albumin 3.8 D, Globulin 2.5, Albumin/Globulin Ratio 1.5 08/02/20 05:27: POC Glucose 136 H 08/02/20 11:02: POC Glucose 106 I & O for Last 24 hours: Intake & Output 07/30/20 07/31/20 08/01/20 08/02/20 22:59 23:59 23:59 23:59 Intake Total 840 / 840 480 / 480 Output Total 550 / 700 1550 / 1550 Balance 290 / 140 -1070 / -1070 Weight 266 lb 12.149 oz 266 lb Narrative: Telemetry strip is sinus rhythm with a rate in the 70s. Echo shows: 1. Technically difficult study because of the patient factors and poor acoustic windows. 2. Mildly enlarged left atrium, normal left ventricular size, mild concentric left ventricular hypertrophy, visually estimated ejection fraction 50% with segmental wall motion abnormality described above, diastolic parameters are inconclusive. Endocardial surfaces are very poorly visualized. 3. Mildly enlarged right ventricle with normal contractility. 4. Mild mitral and tricuspid regurgitation. 5. No significant pericardial effusion noted. - Constitutional no acute distress, obese - *Routine HEENT Exam Head: Present: normocephalic, atraumatic Eye: Present: EOMI, PERRL ENT: Present: mucous membranes moist - *Routine Neck Exam Present: supple, full ROM, normal carotid upstroke. Absent: JVD, carotid bruit, lymphadenopathy - *Routine Respiratory Exam Present: CTA bilaterally - *Routine Cardiovascular Exam Present: RRR, Normal S1, Normal S2. Absent: murmur - *Routine Abdominal Exam Present: soft, normoactive bowel sounds. Absent: tenderness, distended - *Routine Extremities Exam Present: full ROM, pulses intact, normal capillary refill. Absent: cyanosis, clubbing, edema - *Routine Skin Exam Present: intact, warm. Absent: erythema, rash - *Routine Neurological Exam Present: alert, oriented X3, CN II-XII intact. Absent: sensory deficit, motor deficit Progress Note: A&P (1) STEMI (ST elevation myocardial infarction) Status: Acute (2) Atrial fibrillation Status: Chronic (3) HTN (hypertension) Status: Chronic (4) Hyperlipidemia Status: Chronic (5) Obesity (BMI 30-39.9) Status: Chronic
--- NOTE | 2020-08-02 11:30 | HMH.DCSUM ---
General - General Admission date:: 08/01/20 Discharge date: 08/02/20 HPI HPI: this pt presented to the ed with chest pain which started this am - he had pain in the last few days but this was worse and more intense - he was given ntg and pain meds in the ed but continued to have chest pain with abn ekg and was taken to photofinishing laboratory worker Hospital Course Hospital Course: this pt presented to the ed with chest pain which started this am - he had pain in the last few days but this was worse and more intense - he was given ntg and pain meds in the ed but continued to have chest pain with abn ekg and was taken to photofinishing laboratory worker 08/01/20 ECHO: Conclusion 1. Technically difficult study because of the patient factors and poor acoustic windows. 2. Mildly enlarged left atrium, normal left ventricular size, mild concentric left ventricular hypertrophy, visually estimated ejection fraction 50% with segmental wall motion abnormality described above, diastolic parameters are inconclusive. Endocardial surfaces are very poorly visualized. 3. Mildly enlarged right ventricle with normal contractility. 4. Mild mitral and tricuspid regurgitation. 5. No significant pericardial effusion noted. Electronically signed by : Ryland Richter, 08/01/2020 chest x-ray reveals no acute findings 08/01/2020 cardiac catheterization: ANGIOGRAPHIC RESULTS The left main artery Has mid vessel and distal 10 to 20% stenosis The left anterior descending artery Has proximal 80% stenosis followed by mid vessel 90% stenosis. The circumflex artery Is a codominant large vessel with a proximal 30 to 40% stenosis The right coronary artery Is a large codominant vessel and has proximal diffuse 30% atheromatous disease which extends into the mid segment with 30% stenoses. A long posterior descending artery has a mid vessel focal greater than 90% stenosis accompanied by GENNA II flow. Following the procedure GENNA-3 flow was present The OSMAN ventriculogram reveals Normal 65% The left ventricular end-diastolic pressure 20 mmHg IMPRESSION Severe three-vessel coronary artery disease as described above involving the LAD ramus intermedius and right coronary artery with mild to moderate disease in a codominant large circumflex artery ST elevation myocardial infarction involving the right coronary artery with successful stenting of the posterior descending artery reducing the critical stenosis to 0% Successful stenting of the proximal to mid LAD severe disease reduced to 0% with 1 drug-eluting stent Successful stenting of the proximal ramus intermedius critical disease reduced to 0% with 1 drug-eluting stent Normal ejection fraction Mildly elevated LVEDP PLAN 1. Brilinta 90 twice daily plus aspirin 81 mg daily 2. LDL less than 55 3. Cardiac rehabilitation 4. Supportive care 5. Standard therapy for ischemic heart disease 6. Aggressive risk factor modification 7. Avoidance of all tobacco products Electronically signed by : Tahir Carrion Cardiology has seen and recommends: 1. Patient is admitted to the hospital for an inferior STEMI. The patient had stenting to the PAD which was the infarct vessel, LAD and ramus. The patient tolerated the procedure well. He was loaded with Brilinta and has been switched over to Plavix. He will remain on Plavix and aspirin for dual antiplatelet therapy. 2. The patient does have a history of paroxysmal atrial fibrillation and takes Xarelto for long-term anticoagulation. The patient will be on triple therapy with Xarelto, Plavix and aspirin. I have had a long discussion with the patient about being on triple therapy and if he has any signs of bleeding he is to notify us immediately. The patient has verbalized understanding. 3. His coronary artery disease is likely stable. His chest pain has resolved. 4. His blood pressure is acceptable at this time. 5. His LDL goal is less than 55. His LDL is currently 123. He is on a st
--- NOTE | 2020-08-02 12:07 | HMH.PHACLD ---
Ger Greenberg has received discharge medication counseling on the following medications: CONTINUED MEDICATIONS: LISINOPRIL AND ATORVASTATIN NEW MEDICATIONS: PLAVIX, METOPROLOL, ASPIRIN
== END 2020-08-02 12:53 | disposition home or self-care (01) | DRG 247 ==
LOC: ER 06:43 → CATHLAB 07:03 → 2ND 08:53 → ICU 14:40
PROVIDERS: Internal Medicine; Admitting Provider Emergency Medicine; Emergency Provider Emergency Medicine; PCP Emergency Medicine; Visit Provider Emergency Medicine
PROC: 027236Z Dilation of Coronary Artery, Three Arteries with Three Drug-eluting Intraluminal Devices, Percutaneous Approach (ICD-10-PCS; principal; 2020-08-01 07:00)
DX: I21.11 ST elevation (STEMI) myocardial infarction involving right coronary artery (principal); I48.0 Paroxysmal atrial fibrillation; E11.9 Type 2 diabetes mellitus without complications; I10 Essential (primary) hypertension; Z79.01 Long term (current) use of anticoagulants; Z79.4 Long term (current) use of insulin
CPT/HCPCS: 71045; 80048; 80053; 80061; 80076; 82962; 83036; 83735; 84484; 85025; 85347; 86328; 87581; 87633; 87798; 92928; 93005; 93306; 93458; 96365; 96375; 99152; 99153; 99284; C1725; C1760; C1769; C1876; C9600; J1644; Q9967

== ENCOUNTER 2020-08-18 09:51 | Outpatient (RCR) | payer BC, SELFPAY | END 2020-11-25 11:22 | disposition home or self-care (01) | LOC: PT 09:51 | PROVIDERS: Visit Provider Internal Medicine | DX: Z95.5 Presence of coronary angioplasty implant and graft (principal); I25.10 Atherosclerotic heart disease of native coronary artery without angina pectoris; I25.2 Old myocardial infarction | CPT/HCPCS: 93798 ==

== ENCOUNTER 2020-09-20 13:16 | Emergency (ER) | payer BC, SELFPAY ==
[2020-09-20 13:17] VITALS: BP 126/68; PULSE 66; RESP 16; TEMP 36.6; O2SAT 97; BMI 39.0
--- NOTE | 2020-09-20 13:26 | HMH.EDGENADL ---
ED Disposition Clinical Impression: Radicular leg pain Disposition: Home, Self-Care Condition on Discharge: Good Instructions: DI for Chronic Pain -- Adult Referrals: Nino Velez MD [Primary Care Provider] - 3 days Time of Disposition: 14:26 - Critical Care Critical Care Time: No Attestation: On , the high probability of a clinically significant, sudden or life threatening deterioration of the following system(s) required my full and direct attention, intervention and personal management. The time I documented below is in addition to time spent performing reported procedures but includes the following listed in this critical care notation. Medical Decision Making - Medical Records Medical records reviewed: Yes: I reviewed the patient's medical records. - Julien Inquiry Pt receiving controlled substance: No Vital Signs: 09/20/20 13:17 Temperature 97.8 F Temperature Source Oral Pulse Rate [Left Radial] 66 Respiratory Rate 16 Blood Pressure [Left Arm] 126/68 Blood Pressure Mean [Left Arm] 87 Blood Pressure Source [Left Arm] Automatic Cuff Blood Pressure Position [Left Arm] Sitting 02 Sat by Pulse Oximetry 97 Oxygen Delivery Method Room Air Orders (Tests/Meds): ORDERS Category Date Time Status Lumbar spine XR 2-3 views [XR lumbar spine 2-3V] Stat Exams 09/20/20 13:35 Taken - Radiology Data #1 Image(s): L-Spine Image Reviewed: Yes I reviewed the patient's radiology results Preliminary Findings: Normal/NAD Medical Decision Narrative: 60yo M evaluated for paresthesia to the left lateral thigh. Patient in no acute distress on initial evaluation. Patient reports taking all medications as directed. There is no unilateral calf swelling, no erythema, no tenderness to palpation, no pain with calf squeeze. Patient has no shortness of breath. Patient has no clinical signs of DVT, plus the patient is on Xarelto, Plavix, baby aspirin. X-rays are obtained as the patient's complaints are more radicular sounding in nature. X-rays are benign on my wet read, pending radiology overread at this time. Counseled the patient that he may need further work-up for radicular symptoms, to include an MRI at some point. Patient reports understanding and agreement the plan. He is appropriate stable for discharge home. General Adult HPI - General Stated complaint: Lt leg numbness Time Seen by Provider: 09/20/20 13:26 Mode of Arrival: Ambulatory - History of Present Illness HPI narrative: 60yo M directed to the emergency department by his senior automation engineer after the patient's called to complain about leg pain. Further discussion with the patient reveals that he has a burning and stinging sensation to the lateral aspect of his left thigh. This is been present since the patient underwent his left heart catheterization and received 3 stents. His symptoms been worse over the past 3 days. He denies any fall, trauma, heavy lifting. For the patient's left heart catheterization, a right arterial approach was utilized. He denies any saddle paresthesia, loss of bladder or bowel function. Denies any fever, nausea/vomit/diarrhea. Reports taking all medications as directed, to include Xarelto and Plavix and aspirin. Patient denies any unilateral calf swelling, calf tenderness, redness of the calf, shortness of breath, sensation of tachycardia. - Related Data Home Medications Medication Instructions Recorded Confirmed Cholecalciferol (Vitamin D3) 1,000 unit PO DAILY 08/01/20 08/24/20 [Vitamin D3 1,000 Unit Cap] Cholecalciferol (Vitamin D3) 50,000 unit PO WEEKLY 08/01/20 08/24/20 [Vitamin D3 50,000 unit Cap] Colchicine 0.6 mg PO DAILYP PRN 08/01/20 08/24/20 Ergocalciferol (Vitamin D2) 10 mcg PO DAILY 08/01/20 08/24/20 [Vitamin D2] Metformin HCl [Glucophage Xr] 500 mg PO DAILY 08/01/20 08/24/20 Previous Rx's Medication Instructions Recorded atorvastatin 40 mg tablet 40 mg PO DAILY #90 tab
--- NOTE | 2020-09-20 13:35 | XR_ITS ---
PROCEDURE: XR LUMBAR SPINE 2-3V CLINICAL INDICATION: L rad pain COMPARISON: CR XR LUMBAR SPINE MIN 4V from 06/23/2019 FINDINGS: No fracture or dislocation. No lytic or blastic change. There is normal mineralization. Mild degenerative disc disease is present at T12-L1 and L2-L3. Small anterior osteophytes are present at T12, L2, L3, L4, and L5. There is mild sclerosis of the SI joint superiorly on both sides. There is mild chronic wedging of T12 Other findings:None. IMPRESSION: Degenerative changes as described above overall not significantly changed. Dictated by: Ricardo Sandoval MD 09/20/2020 14:33 Ricardo Sandoval MD in [place] 09/20/2020 14:33
[2020-09-20 14:30] VITALS: BP 130/94; PULSE 74; RESP 20; TEMP 36.6; O2SAT 96
== END 2020-09-20 14:30 | disposition home or self-care (01) ==
PROVIDERS: Emergency Provider Family Medicine; PCP Emergency Medicine
DX: M54.10 Radiculopathy, site unspecified (principal); Z95.5 Presence of coronary angioplasty implant and graft; I25.2 Old myocardial infarction; Z79.899 Other long term (current) drug therapy
CPT/HCPCS: 72100; 99282

== ENCOUNTER → 2020-11-11 13:40 | Outpatient (CLI) | payer BC, SELFPAY ==
[2020-11-11 13:52] LABS: Alanine Aminotransferase 20 U/L (12-78); Albumin Level 4.4 g/dl (3.5-5.0); Alkaline Phosphatase 67 U/L (38-126); Anion Gap 15.1 mEq/L (5-15); Aspartate Amino Transferase 24 U/L (17-59); Bilirubin,Direct 0.3 mg/dl (0.0-0.4); Bilirubin,Indirect 0.3 mg/dL (0.0-0.9); Bilirubin,Total 0.6 mg/dl (0.2-1.3); Bilirubin,Unconjugated 0.3 mg/dL (0.0-1.1); Blood Urea Nitrogen 12 mg/dl (9-20); Calcium 9.1 mg/dl (8.4-10.2); Carbon Dioxide 24 mmol/L (22.0-30.0); Chloride 103 mmol/L (98-107); Cholesterol 148 mg/dl (140-200); Estimated Glomerular Filt Rate 99 ml/min (>60); GFR (African American) 119 ML/MIN (>60); Glucose 112 mg/dl (74-100); HDL Cholesterol 37 mg/dl (40-60); Potassium 4.1 mmoL/L (3.5-5.1); Sodium 138 mmol/L (136-145); Total Protein,Serum 6.9 g/dl (6.3-8.2); Triglycerides 155 mg/dl (30-150); VLDL Cholesterol 31 mg/dL (0-40)
[2020-11-11 14:01] LABS: NT Pro Brain Natriuretic Pep. 22.4 pg/mL (0-125)
[2020-11-11 14:03] LABS: Direct LDL Cholesterol 82.07 mg/dL (100-129)
== END ==
PROVIDERS: PCP Emergency Medicine; Visit Provider Internal Medicine Cardiovascular Disease
DX: R06.09 Other forms of dyspnea (principal); I25.10 Atherosclerotic heart disease of native coronary artery without angina pectoris; I48.0 Paroxysmal atrial fibrillation; I10 Essential (primary) hypertension; E11.69 Type 2 diabetes mellitus with other specified complication; E78.5 Hyperlipidemia, unspecified; Z95.5 Presence of coronary angioplasty implant and graft; Z79.84 Long term (current) use of oral hypoglycemic drugs
CPT/HCPCS: 80048; 80061; 80076; 83880

== ENCOUNTER → 2020-11-14 13:41 | Outpatient (CLI) | payer BC, SELFPAY ==
--- NOTE | 2020-11-14 13:42 | CA_ITS ---
APPROVED REPORT EXAM: Comprehensive 2D, Doppler, and color-flow Echocardiogram Language Tutor: Mónica Mendez RT(R) Ht: 5 ft 11 in Wt: 280lbs BSA: 2.43 BP: 118/72 mmHg Indications: CP, COPD, HTN, hyperlipidemia, stents, hx COVID, AFIB, CAD, CHF, old DE, obesity Echo Enhancing Agent Indication: Endocardial border delineation Agent(s) / Amount(s) Used: Definity 2 cc 2D Dimensions Aortic Root 2.11 cm M: 3.1 - 3.7 LA Volume 48.60 mL LA Volume Index 20.00 mL/m2 (M/F) 16-34 M-Mode Dimensions RVDd 2.91 cm (0.9-2.6) LA Diam 3.45 cm (1.9-4.0) LVDd 5.14 cm (3.5-5.7) Ao Diam 3.72 cm (2.0-3.7) LVDs 3.53 cm (3.5-5.7) IVSd 1.34 cm (0.6-1.1) PWd 0.80 cm (0.6-1.1) EF (Teich) 58.80% FS 31.30% EDV (Teich) 126.10 mL ESV (Teich) 51.90 mL LV Diastology E Decel Time 160.00 (160-240 msec) E/A Ratio 1.2 MED E' 10.10 (< 7 cm/sec) E'/MED E' Ratio 8.54 (>14) LAT E' 11.30 (<10 cm/sec) E/LAT E' Ratio 7.64 (>14) Mitral Valve MV E Max Babatunde. 86.00 (40-130 cm/s) MV A Velocity 69.00 (40-130 cm/s) E/A Ratio 1.25 MV Decel. Time 160.00 (160-240 ms) MV PHT 47.00 ms Tricuspid Valve TR P. Velocity 268.00 cm/s RAP Estimate 15.00 mmHg RVSP 43.70 mmHg Left Ventricle Left atrium is mildly enlarged, left ventricle is normal size, mild concentric left ventricular hypertrophy, visually estimated ejection fraction 55% with no regional wall motion abnormality, diastolic parameters are inconclusive. Right Ventricle Right atrium and right ventricle are mildly enlarged with normal contractility. Aortic Valve Aortic valve is minimally thickened and fibrosed, there is no aortic stenosis or aortic insufficiency. Mitral Valve Mitral valve is grossly normal, there is mild mitral regurgitation. Tricuspid Valve Tricuspid valve grossly normal, there is mild tricuspid regurgitation, tricuspid regurgitation jet velocity is inadequate for calculation of the right ventricular systolic pressure. Pulmonic Valve Pulmonic valve is poorly visualized. Great Vessels Aortic root is normal size. Pericardium No significant pericardial effusion noted. Conclusion 1. Biatrial enlargement, normal left ventricular size, mild concentric left ventricular hypertrophy, visually estimated ejection fraction 55% with no regional wall motion abnormality, diastolic parameters are inconclusive. 2. Mildly enlarged right ventricle with normal contractility. 3. Mild mitral and tricuspid regurgitation. 4. No significant pericardial effusion noted. Electronically signed by : Ryland Richter, 11/14/2020 22:04:20
== END ==
PROVIDERS: PCP Emergency Medicine; Visit Provider Internal Medicine Cardiovascular Disease
DX: R06.00 Dyspnea, unspecified (principal); R60.9 Edema, unspecified; I48.0 Paroxysmal atrial fibrillation; I25.10 Atherosclerotic heart disease of native coronary artery without angina pectoris; I10 Essential (primary) hypertension; E11.69 Type 2 diabetes mellitus with other specified complication; E78.5 Hyperlipidemia, unspecified; G47.9 Sleep disorder, unspecified; Z95.5 Presence of coronary angioplasty implant and graft; Z79.84 Long term (current) use of oral hypoglycemic drugs
CPT/HCPCS: 93306; Q9957

== ENCOUNTER → 2020-12-01 10:35 | Outpatient (CLI) | payer BC, SELFPAY | PROVIDERS: PCP Emergency Medicine; Visit Provider Specialist | DX: G47.33 Obstructive sleep apnea (adult) (pediatric) (principal) | CPT/HCPCS: G0399 ==

== ENCOUNTER → 2021-03-11 08:04 | Outpatient (CLI) | payer BC, SELFPAY ==
[2021-03-11 08:39] LABS: Basophils # 0.1 K/mm3 (0-0.2); Eosinophils # 0.3 K/mm3 (0.0-0.4); Eosinophils % 4.4 % (0.1-12.0); Hematocrit 48.7 % (42.0-52.0); Hemoglobin 16.3 g/dL (14.1-18.0); Lymphocytes % 33.4 % (10-50); Mean Corpuscular HGB Conc 33.5 g/dL (31.8-35.4); Mean Corpuscular Hemoglobin 31.8 pg (27.0-31.2); Mean Platelet Volume 9.5 fl (7.4-10.4); Monocytes # 0.4 K/mm3 (0.1-1.0); Monocytes % 5.9 % (1.7-9.3); Neutrophils # 3.2 K/mm3 (1.8-7.8); Neutrophils % 54.4 % (37.0-80.0); Platelet Count 296 K/mm3 (142-424); Red Blood Count 5.13 M/mm3 (4.60-6.20); Red Cell Distribution Width 13.7 % (11.5-17.5)
[2021-03-11 08:46] LABS: Chloride 103 mmol/L (98-107); Potassium 4.6 mmoL/L (3.5-5.1); Sodium 138 mmol/L (136-145)
[2021-03-11 08:49] LABS: Blood Urea Nitrogen 9 mg/dl (9-20); Estimated Glomerular Filt Rate 99 ml/min (>60); GFR (African American) 119 ML/MIN (>60)
[2021-03-11 08:50] LABS: Anion Gap 10.6 mEq/L (5-15); Calcium 9.2 mg/dl (8.4-10.2); Carbon Dioxide 29 mmol/L (22.0-30.0); Glucose 118 mg/dl (74-100)
== END ==
PROVIDERS: PCP Emergency Medicine; Visit Provider Surgery
DX: Z01.812 Encounter for preprocedural laboratory examination (principal); Z11.52 Encounter for screening for COVID-19; U07.1 COVID-19; L72.9 Follicular cyst of the skin and subcutaneous tissue, unspecified
CPT/HCPCS: 80048; 85025; C9803; U0003; U0005

== ENCOUNTER 2021-04-04 07:01 | Day surgery (SDC) | payer BC, SELFPAY ==
[2021-03-29 14:52] VITALS: BMI 39.0
[2021-04-04 07:19] VITALS: BP 135/56; PULSE 56; RESP 18; TEMP 36.3; O2SAT 96
--- NOTE | 2021-04-04 09:16 | P.PN_ITS ---
[facility] Anesthesia Checklist - Patient Identification Patient Identification: Arm Band, Verbal (Name & ) - Structural Data Admitted From: Home Planned Operative Procedure/s: Excision of scalp cysts Consent for Planned Operative Procedure(s) Verified: Yes Verified Documents: Surgical Consent - NPO Status Verified Time NPO: 17:00 - Additional verifications Anesthesia Reactions: No Hx Blood Transfusions: No Blood Transfusion Reaction: No - Cardiovascular Assessment Heart Sounds: S1 & S2 Pulse Rhythm: Regular - Airway Assessment C-Spine Mobility Assessed: Yes TMJ Mobility Assessed: Yes Dentition: Dentures-good fit - Neurological Assessment Level of Consciousness: Awake, Alert, Appropriate - Anesthesia Plan Anesthesia Type: MAC [facility] History Medical History: Reports:: Atrial Fibrillation, Congestive Heart Failure, Coronary Artery Disease, Diabetes Mellitus Type 2, Hyperlipidemia, Hypertension, Lung Disease, Myocardial Infarction Denies:: Cancer, Diabetes Mellitus Type 1, Internal Pacemaker, MRSA, Seizures *Have you ever received a pneumonia vaccine?: No *Have you received a flu vaccine this season?: No Other Medical History: Denies: Blood Transfusion Reaction Anesthesia experience/problems:: none Other Surgeries: Yes: Cardiac Catheterization, Cardiac Surgery, Colonoscopy, Coronary Stent, Hernia Repair. No: Pacemaker Amputation: No Fractures: No - *Social History Last grade of school completed: High school graduate Smoking Status: Never smoker Tobacco Type: smokeless tobacco # Packs/Day (cigarettes): 0 Alcohol Intake: never Substance Use Type: denies use *Occupational Status:: employed Housing: house Household Members: spouse *Travel in the last 8 weeks: None Family Hx:: Coronary Artery Disease
--- NOTE | 2021-04-04 09:27 | P.OP_ITS ---
Date of procedure: 04/04/21 Pre-op Diagnosis:: Scalp cyst x2 Post-op Diagnosis:: Same Procedure performed:: Excision of scalp cyst x2 (excisional length approximately 2 cm) with intermediate complexity closure Surgeon:: David Mcguire MD PRODUCTION SUPERVISOR:: Other Anesthesia: MAC, LMA Estimated blood loss (mL): 5 Operative findings:: Consistent with subcutaneous Pilar cyst Operative note:: Consent was obtained. Patient was taken to the operating room. He was positioned in supine position. Adequate intravenous sedation was achieved. The area was prepped and draped in the standard surgical fashion. Attention was first turned to the cyst above his left ear. Lesion was marked with skin marker for planned elliptical incision. Local anesthetic was infiltrated. Skin incision was made. Dissection was carried down to the cyst capsule. The cyst capsule was dissected free from the surrounding tissues using sharp dissection with the overlying skin ellipse. Was sent off as specimen. Hemostasis was achieved with electrocautery. Subcutaneous tissues were reapproximated with a couple of interrupted 2-0 Vicryl. Skin was closed with john. Next attention was turned to the lesion near the apex of the scalp. Skin was marked with a skin marker. Incision was made after injection of local anesthetic. There was well encapsulated cyst. The cyst was dissected free from surrounding tissues with the attached overlying skin ellipse. It was sent off as a specimen. Wound was irrigated. Hemostasis was achieved electrocautery. Subcutaneous tissues were closed with Vicryl. Skin was closed with skin john. Dermabond was applied to both incisions. Condition: stable Disposition: PACU Specimens:: Scalp cysts Complications:: None immediately apparent
[2021-04-04 09:30] VITALS: BP 124/69; PULSE 17; RESP 18; TEMP 35.5; O2SAT 93
[2021-04-04 09:42] VITALS: BP 124/82; PULSE 66; RESP 18; O2SAT 97
[2021-04-04 10:01] VITALS: BP 123/65; PULSE 65; RESP 16; O2SAT 95
[2022-02-15 10:54] LABS: POC Glucose,Bedside 123 (70-110)
== END 2021-04-04 10:05 | disposition home or self-care (01) ==
LOC: OR 07:03
PROVIDERS: PCP Emergency Medicine; Visit Provider Surgery
PROC: (CPT 11420; principal; 2021-04-04 08:45)
DX: L72.11 Pilar cyst (principal); I48.91 Unspecified atrial fibrillation; I25.10 Atherosclerotic heart disease of native coronary artery without angina pectoris; E11.9 Type 2 diabetes mellitus without complications; E78.5 Hyperlipidemia, unspecified; I10 Essential (primary) hypertension; I25.2 Old myocardial infarction; J84.9 Interstitial pulmonary disease, unspecified; Z79.4 Long term (current) use of insulin; Z79.899 Other long term (current) drug therapy
CPT/HCPCS: 11420; 12031; 82962

== ENCOUNTER 2021-06-14 09:06 | Emergency (ER) | payer BC, SELFPAY ==
[2021-06-14 09:20] VITALS: BP 141/87; PULSE 78; RESP 19; TEMP 36.7; O2SAT 100; BMI 39.0
--- NOTE | 2021-06-14 10:13 | HMH.EDUTC ---
[facility] Disposition Clinical Impression: Bronchitis Sinusitis Qualifiers: Sinusitis location: unspecified location Chronicity: unspecified Qualified Code(s): J32.9 - Chronic sinusitis, unspecified Disposition: Home, Self-Care Condition on Discharge: Good Instructions: Sinusitis, DI for Sinusitis Additional Instructions: ? Start antibiotic today. Be sure to complete entire prescription even if feeling better ? Monitor temp. Tylenol every 4 hours as needed and / or ibuprofen every 6 hours as needed ( As long as your primary care physician has told you that it ok to take both. For fever/aches/pains ER if no less than 101 despite Tylenol or Motrin ? Humidifier/vaporizer or hot steamy shower *Tessalon Perles will not cause drowsiness but use at bedtime to help stop cough so that you may get some rest. *Start steroid today. Helps with inflammation therefore, cough and wheezing. Follow directions on the package. Reviewed side effects. Patient reports taking them before. Follow up IMMEDIATELY for new or worsening of symptoms OR no noticeable improvement over the next 48-72 hours. 911 immediately for any life threatening symptoms such as chest pain or difficulty breathing Prescriptions: Benzonatate [Benzonatate 100mg cap] 100 mg PO Q8HP PRN #15 cap PRN Reason: Cough Transmission Status: Pending to [facility] Amoxicillin/Potassium Clav [Augmentin 875-125 Tablet] 1 tab PO Q12H #20 tab Transmission Status: Pending to [facility] methylPREDNISolone [Medrol 4mg tab] 4 mg PO DIRECTED #21 tab Transmission Status: Pending to [facility] Referrals: Nino Velez MD [Primary Care Provider] - As needed Time of Disposition: 10:19 Medical Decision Making - Julien Inquiry Pt receiving controlled substance: No Julien was queried for this patient: No Vital Signs: 06/14/21 09:20 Temperature 98.0 F Temperature Source Oral Pulse Rate [Right Brachial] 78 Respiratory Rate 19 Blood Pressure [Right Arm] 141/87 H Blood Pressure Mean [Right Arm] 105 Blood Pressure Source [Right Arm] Automatic Cuff Blood Pressure Position [Right Arm] Sitting 02 Sat by Pulse Oximetry 100 Oxygen Delivery Method Room Air [facility] HPI - General Stated complaint: cough, congestion Time Seen by Provider: 06/14/21 10:13 Mode of Arrival: Ambulatory Source of Information: Patient Limitations: No Limitations Description of Symptoms (Recalled from Triage Doc. by RN): PATIENT C/O DRY COUGH, CHEST CONGESTION, AND SINUS PRESSURE X 3 DAYS HEENT Symptoms (Recalled from RN notes): Yes Resp Symptoms (Recalled from RN notes): Yes Skin Symptoms (Recalled from RN notes): No MS Symptoms (Recalled from RN notes): No Functional Status (Recalled from RN notes): WNL - History of Present Illness Provider Complaint: Patient states that he has been having sinus problems on and off for over a week States that for the last few days he has has been having worsening of sinus pressure and dry cough State that he feels like it is trying to move into his chest Denies known exposure to COVID and does not want tested - Related Data Home Medications Medication Instructions Recorded Confirmed Colchicine 0.6 mg PO DAILYP PRN 08/01/20 06/08/21 diltiazem HCl 240 mg 240 mg PO DAILY cap 11/10/20 06/08/21 capsule,extended release 24 hr metformin 500 mg tablet,extended 500 mg PO DAILY tab 11/10/20 06/08/21 release 24 hr Atorvastatin Calcium [Lipitor 40mg See Rx Instructions .ROUTE .COMPLEX 03/07/21 06/08/21 Tab] Isosorbide Mononitrate [Isosorbide See Rx Instructions .ROUTE .COMPLEX 03/07/21 06/08/21 Mononitrate ER] Spironolactone [Spironolactone 25 mg PO DAILY 03/07/21 06/08/21 25mg Tablet] bisoproloL fumarate [Bisoprolol 5 mg PO DAILY 03/07/21 06/08/21 Fumarate] Pantoprazole Sodium 40 mg PO DAILY 03/29/21 06/08/21 Previous Rx's Medication Instructions Recorded rivaroxaban 20 mg tablet See Rx
[2021-06-14 10:21] VITALS: BP 141/87; PULSE 78; RESP 19; TEMP 36.7; O2SAT 100
== END 2021-06-14 10:26 | disposition home or self-care (01) ==
PROVIDERS: Emergency Provider Nurse Practitioner; PCP Emergency Medicine
DX: J20.9 Acute bronchitis, unspecified (principal); J32.9 Chronic sinusitis, unspecified; I48.91 Unspecified atrial fibrillation; I25.10 Atherosclerotic heart disease of native coronary artery without angina pectoris; I25.2 Old myocardial infarction; Z79.899 Other long term (current) drug therapy
CPT/HCPCS: 99202; G0463

== ENCOUNTER → 2021-08-22 18:46 | Outpatient (CLI) | payer BC, SELFPAY ==
[2021-08-22 13:58] LABS: Hemoglobin A1C 6.4 % (4.0-6.0)
[2021-08-22 14:05] LABS: Basophils # 0.1 K/mm3 (0-0.2); Basophils % 1.2 % (0.1-2.0); Eosinophils # 0.2 K/mm3 (0.0-0.4); Eosinophils % 3.6 % (0.1-12.0); Hematocrit 46.6 % (42.0-52.0); Hemoglobin 15.7 g/dL (14.1-18.0); Mean Corpuscular HGB Conc 33.7 g/dL (31.8-35.4); Mean Corpuscular Hemoglobin 32.4 pg (27.0-31.2); Mean Corpuscular Volume 96.1 fl (80-94); Mean Platelet Volume 10.5 fl (7.4-10.4); Monocytes # 0.4 K/mm3 (0.1-1.0); Monocytes % 5.6 % (1.7-9.3); Neutrophils # 3.6 K/mm3 (1.8-7.8); Neutrophils % 57.6 % (37.0-80.0); Platelet Count 309 K/mm3 (142-424); Red Blood Count 4.85 M/mm3 (4.60-6.20); Red Cell Distribution Width 14.7 % (11.5-17.5); White Blood Count 6.2 K/mm3 (4.8-10.8)
[2021-08-22 14:09] LABS: Chloride 105 mmol/L (98-107); Sodium 143 mmol/L (136-145)
[2021-08-22 14:10] LABS: Potassium 4.6 mmoL/L (3.5-5.1)
[2021-08-22 14:12] LABS: Alanine Aminotransferase 29 U/L (12-78); Albumin Level 4.1 g/dl (3.5-5.0); Alkaline Phosphatase 61 U/L (38-126); Anion Gap 12.6 mEq/L (5-15); Aspartate Amino Transferase 30 U/L (17-59); Bilirubin,Total 0.8 mg/dl (0.2-1.3); Blood Urea Nitrogen 6 mg/dl (9-20); Calcium 8.9 mg/dl (8.4-10.2); Carbon Dioxide 30 mmol/L (22.0-30.0); Cholesterol 95 mg/dl (140-200); Estimated Glomerular Filt Rate 99 ml/min (>60); GFR (African American) 119 ML/MIN (>60); Globulin 2.1 g/dL (1.3-3.2); Glucose 98 mg/dl (74-100); Total Protein,Serum 6.2 g/dl (6.3-8.2); Triglycerides 167 mg/dl (30-150); VLDL Cholesterol 33 mg/dL (0-40)
[2021-08-22 14:13] LABS: Chol/HDL Ratio 3.5 (1-3.5); HDL Cholesterol 27 mg/dl (40-60)
[2021-08-22 14:22] LABS: NT Pro Brain Natriuretic Pep. 174 pg/mL (0-125)
[2021-08-22 14:24] LABS: Direct LDL Cholesterol 48.59 mg/dL (100-129)
[2021-08-22 14:27] LABS: 25-OH Vitamin D, Total 56.6 ng/mL (30-100)
[2021-08-22 14:44] LABS: Thyroid Stimulating Hormone 2.11 uIU/mL (0.465-4.68)
== END ==
PROVIDERS: Visit Provider Emergency Medicine
DX: E11.9 Type 2 diabetes mellitus without complications (principal); E03.9 Hypothyroidism, unspecified; R53.83 Other fatigue; K59.00 Constipation, unspecified; Z12.5 Encounter for screening for malignant neoplasm of prostate; Z79.84 Long term (current) use of oral hypoglycemic drugs
CPT/HCPCS: 80053; 80061; 82306; 83036; 83880; 84439; 84443; 85025; G0103

== ENCOUNTER → 2022-07-24 13:41 | Outpatient (CLI) | payer BC, SELFPAY ==
--- NOTE | 2022-07-24 13:41 | MR_ITS ---
FINAL REPORT CLINICAL HISTORY: back pain right leg numbness x 1.5 years FINDINGS: Multiplanar MR imaging of the lumbar spine was performed without contrast. On the sagittal T2-weighted images, disc degeneration is seen at multiple levels. There are endplate changes at multiple levels. The vertebral alignment is normal. There is no evidence of fracture. The conus has an unremarkable appearance. T12-L1: An annular bulge is present. There is no significant canal stenosis or neural foraminal narrowing. L1-2: An annular bulge and facet arthropathy are present. There is no significant canal stenosis or neural foraminal narrowing. L2-3: An annular bulge is present. Facet arthropathy and osteophytes are present. There is a small central disc protrusion with mild left neural foraminal narrowing. L3-4: Facet arthropathy is present. There is no significant canal stenosis or neural foraminal narrowing. L4-5 An annular bulge and facet arthropathy are present. There is mild bilateral neural foraminal narrowing. L5-S1: An annular bulge and facet arthropathy are present. There is moderate bilateral neural foraminal narrowing. Note is made of spurring of the sacroiliac joints. IMPRESSION: Multilevel degenerative disc disease and spondylosis. Small central disc protrusion at L2-3. Reviewed, Interpreted and Dictated by David Ruano III, MD Transcribed by Lindsay Lim Authenticated and [facility]
== END ==
LOC: RAD 13:41
PROVIDERS: PCP Emergency Medicine; Visit Provider Emergency Medicine
DX: M54.16 Radiculopathy, lumbar region (principal)
CPT/HCPCS: 72148; 76376

== ENCOUNTER → 2022-08-22 08:51 | Outpatient (POV) | payer BC, SELFPAY ==
[2022-08-22 10:07] VITALS: BP 141/97; PULSE 73; RESP 18; O2SAT 97; BMI 39.0
--- NOTE | 2022-08-22 12:20 | EXP.PAIN.OV ---
HPI Data of Consult Patient: new to practice Consult date: 08/22/22 Requesting Physician: Angie Hawk APRN Primary Care Provider: Nino Velez MD Consult Narrative Reason for consult: Low back pain, right hip pain, right leg tingling/numbness History of present illness: Mr. Greenberg is a 61 year old male who presents today as a new patient. He is a referral from Dr. Velez's office. Today he does rate his pain a 0 out of 10. Patient states that he has had some low back issues for several years and it is progressively worsened over time. 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 Patient does state his main issue is pain along his right hip and right leg numbness and tingling. He does states prolonged standing or walking aggravates this pain. He does describe it as an aching, tingling, numb sensation that is worse with increased activity. He states that it does seem to do better with adding pressure along that side. He does state the pain can interfere with his ability to perform activities of daily living such as cooking and cleaning. He states he does not take medications on a regular basis. He denies any previous back surgery or history of injections. Patient does not typically use heat and ice on a regular basis. He states this pain has been going on for at least 6 months however over the last 2 weeks have seemed to be a little bit better. He states his pain is typically worse when he is up increasing his activity. CC: Angie Hawk APRN [facility] Disclaimer: The information contained in this section may have been updated after the patient was seen, as this information can be updated by other users. Medical History Chest pressure Edema Gastroesophageal reflux disease Surgical History History of coronary artery stent placement Social History (Updated 08/22/22 @ 10:07 by Gloria Bee RN) Smoking Status: Never smoker alcohol intake: never substance use type: denies use current occupational status: employed Travel in the last 8 weeks: None household members: spouse housing: house current occupational exposures/hazards: No caffeine: No Review of Systems Review of Systems Review of systems:: pertinent systems reviewed and negative unless documented below Review of systems (narrative): Review of Systems: General: No recent weight changes, no fever, no sleep disturbances Respiratory: No cough, no shortness of air, no recurring pulmonary infections Cardiovascular/peripheral vascular: No chest pain, no palpitations, no edema, no shortness of breath Gastrointestinal: No new onset incontinence, normal bowel movements reported Genitourinary: No new onset incontinence Musculoskeletal: Right leg numbness/tingling Psychiatric: [Normal mood/affect] Neurological: [Denies weakness in extremities], [denies balance issues] Meds Home Medications and Allergies Home Medications Medication Instructions Recorded Confirmed Type diltiazem HCl 240 mg 240 mg PO DAILY Heart rate 11/10/20 08/22/22 History capsule,extended release 24 hr atorvastatin 40 mg tablet See Rx Instructions .Route 03/07/21 08/22/22 History .COMPLEX Cholesterol isosorbide mononitrate 30 mg See Rx Instructions .Route 06/28/21 08/22/22 Rx tablet,extended release 24 hr .COMPLEX HTN #90 tabs cholecalciferol (vitamin D3) 1,250 50,000 unit PO WEEKLY Supplement 08/22/21 08/22/22 Rx mcg (50,000 unit) capsule #12 caps cholecalciferol (vitamin D3) 25 1,000 unit PO DAILY Supplement #90 08/22/21 08/22/22 Rx mcg (1,000 unit) capsule caps rivaroxaban 20 mg tablet See Rx Instructions .Route 08/22/21 08/22/22 Rx .COMPLEX afib #90 tabs colchicine 0.6 mg tablet 0.6 mg PO DAILYP PRN gout #90 tabs 02/02/22 08/22/22 Rx bisoprolol fumarate 5 mg table
== END ==
PROVIDERS: PCP Emergency Medicine; Visit Provider Nurse Practitioner Family
DX: M51.16 Intervertebral disc disorders with radiculopathy, lumbar region (principal); M46.1 Sacroiliitis, not elsewhere classified
CPT/HCPCS: 99202; G0463

== ENCOUNTER 2022-08-28 11:57 | Day surgery (SDC) | payer BC, SELFPAY ==
[2022-08-28 12:03] VITALS: BP 145/97; BP 154/89; PULSE 74; PULSE 83; RESP 18; RESP 19; TEMP 36.4; O2SAT 96; O2SAT 97; BMI 39.0
--- NOTE | 2022-08-28 12:14 | EXP.PAIN.PRO ---
Procedure Date: 08/28/22 Time: 12:10 Anesthesiologist:: Rahul Rg CRNA Complications:: None Pre-procedure Diagnosis:: Right sacroiliitis Post-procedure Diagnosis:: Same Indications for Procedure:: Patient is a very pleasant 62-year-old male that comes our clinic today for right sacroiliac joint injection. He has extreme point tenderness over the right sacroiliac joint. He rates his pain 7/10. Patient has difficulty transitioning from sitting to standing. Difficulty with ambulation. Procedure Details:: Procedure: Right sacroliliac joint injection under fluoroscopy Informed consent was obtained and the risk and benefits of the procedure were explained to the patient.~ The patient was taken to the procedure room and noninvasive monitors were placed including noninvasive blood pressure cuff and pulse oximeter.~ The patient was placed prone on the procedure table.~ The~ right hip was cleansed using Betadine as a cleansing solution.~ C-arm fluorosocpy was used to view the right SI joint.~ The skin and subcutaneous tissues were anesthetized using Lidocaine 1.5% and a 25-gauge needle.~ After this, a 22-gauge spinal needle was inserted under fluoroscopic guidance into the inferior aspect of the right SI joint.~ Omnipaque dye was injected and a good spread was seen throughout the joint.~ After this, approximately 5 mL of bupivacaine 0.25% and Depo-Medrol 40 mg was incrementally injected into the sacroiliac joint.~ The patient tolerated the procedure well with no complications.~ The patient was observed in the Pain Clinic, then discharged home neurologically intact.~ Plan and Disposition:: Patient was discharged without incident.
[2022-08-28 12:15] VITALS: BP 148/92; PULSE 73; RESP 18; O2SAT 96
== END 2022-08-28 12:15 | disposition home or self-care (01) ==
PROVIDERS: PCP Emergency Medicine; Visit Provider Nurse Anesthetist, Certified Registered
DX: M46.1 Sacroiliitis, not elsewhere classified (principal)
CPT/HCPCS: 27096; G0260; J1040

== ENCOUNTER → 2022-09-12 14:18 | Outpatient (POV) | payer BC, SELFPAY ==
--- NOTE | 2022-09-12 14:34 | A.OFFVIS_ITS ---
[facility] Pain Management SOAP Note Subjective:: Patient is a pleasant 62-year-old male who presents today for follow-up of right SI injection on 08/28/2022. We are currently treating the patient for low back pain, right hip pain, right leg pain, sacroiliitis, degenerative disc disease of lumbar spine with lumbar radiculopathy symptoms. Today he rates his pain a 0 out of 10. He states that he has had at least 60% improvement following this injection. He states it is continuing to provide additional relief however he does still have some tingling in his right leg. He states that his pain is much more tolerable and that he has been able to increase his activity with less pain symptoms. Patient states that he does feel like he is more functional and overall better since having this injection. Patient denies any new trauma or injury. He is not currently on any scheduled medications. His Julien is [id number]. Its been reviewed and appropriate. Review of Systems: General: No recent weight changes, no fever, no sleep disturbances Respiratory: No cough, no shortness of air, no recurring pulmonary infections Cardiovascular/peripheral vascular: No chest pain, no palpitations, no edema, no shortness of breath Gastrointestinal: No new onset incontinence, normal bowel movements reported Genitourinary: No new onset incontinence Musculoskeletal: Right leg tingling, low back pain Psychiatric: [Normal mood/affect] Neurological: [Denies weakness in extremities], [denies balance issues] Objective:: Physical Exam: General: Alert and oriented x3, no acute distress, pleasant and cooperative Lungs: Respirations even and unlabored, symmetrical chest expansion Eyes: PERRL Musculoskeletal: Flexion and extension of lumbar [spine] somewhat guarded secondary to pain, [antalgic gait noted] Neurological: Speech clear, no gross sensory deficit Assessment:: Degenerative disc disease of lumbar spine with lumbar radiculopathy symptoms, sacroiliitis, right leg pain, right hip pain, low back pain Plan:: Patient has had at least 60% improvement following his right SI injection and does not require any additional injective therapy at this time. I will order the patient a compounding cream at today's visit. He will follow-up in clinic in 1 month for reevaluation of symptoms and plan of care. Patient has been instructed to contact the clinic with any concerns before the next appointment. Dr. Bux has reviewed this note and agrees with this plan of care. This note was dictated using voice recognition software and make contain errors or omissions. [facility] Disclaimer: The information contained in this section may have been updated after the patient was seen, as this information can be updated by other users. Medical History Chest pressure Edema Gastroesophageal reflux disease Surgical History History of coronary artery stent placement Family History (Updated 08/28/22 @ 12:11 by Joanna Barney, TAMMIE) Other No significant family history Social History Smoking Status: Never smoker alcohol intake: never substance use type: denies use current occupational status: employed Travel in the last 8 weeks: None household members: spouse housing: house current occupational exposures/hazards: No caffeine: No
[2022-09-12 15:03] VITALS: BP 122/87; PULSE 85; RESP 18; O2SAT 95; BMI 84.9
== END ==
PROVIDERS: PCP Emergency Medicine; Visit Provider Nurse Practitioner Family
DX: M51.16 Intervertebral disc disorders with radiculopathy, lumbar region (principal); M46.1 Sacroiliitis, not elsewhere classified; M79.604 Pain in right leg; M25.551 Pain in right hip
CPT/HCPCS: 99212; G0463

== ENCOUNTER → 2023-05-17 08:44 | Outpatient (CLI) | payer BC, SELFPAY ==
[2023-05-17 17:58] LABS: Coronavirus 19, PCR Not Detected (NotDetected); Influenza A, PCR Not Detected (NotDetected); Influenza B, PCR Not Detected (NotDetected)
[2023-05-17 18:14] LABS: Alanine Aminotransferase 35 U/L (12-78); Albumin Level 4.2 g/dl (3.5-5.0); Albumin/Globulin Ratio 1.8 (1.1-1.8); Alkaline Phosphatase 74 U/L (38-126); Anion Gap 12.1 mEq/L (5-15); Aspartate Amino Transferase 34 U/L (17-59); Basophils # 0.1 K/mm3 (0-0.2); Basophils % 0.8 % (0.1-2.0); Bilirubin,Total 0.5 mg/dl (0.2-1.3); Blood Urea Nitrogen 10 mg/dl (9-20); Calcium 8.6 mg/dl (8.4-10.2); Carbon Dioxide 24 mmol/L (22.0-30.0); Chloride 104 mmol/L (98-107); Chol/HDL Ratio 8.8 (1-3.5); Cholesterol 247 mg/dl (140-200); Eosinophils # 0.3 K/mm3 (0.0-0.4); Eosinophils % 3.9 % (0.1-12.0); Estimated Glomerular Filt Rate 98 ml/min (>60); GFR (African American) 119 ML/MIN (>60); Globulin 2.4 g/dL (1.3-3.2); Glucose 240 mg/dl (74-100); HDL Cholesterol 28 mg/dl (40-60); Hemoglobin 16.7 g/dL (14.1-18.0); Lymphocytes # 2.6 K/mm3 (0.7-4.5); Lymphocytes % 34.2 % (10-50); Mean Corpuscular HGB Conc 34.7 g/dL (31.8-35.4); Mean Corpuscular Hemoglobin 31.9 pg (27.0-31.2); Mean Corpuscular Volume 91.9 fl (80-94); Mean Platelet Volume 10.6 fl (7.4-10.4); Monocytes # 0.5 K/mm3 (0.1-1.0); Monocytes % 5.9 % (1.7-9.3); Neutrophils # 4.2 K/mm3 (1.8-7.8); Neutrophils % 55.1 % (37.0-80.0); Platelet Count 268 K/mm3 (142-424); Potassium 4.1 mmoL/L (3.5-5.1); Red Blood Count 5.23 M/mm3 (4.60-6.20); Red Cell Distribution Width 13.7 % (11.5-17.5); Sodium 136 mmol/L (136-145); Total Protein,Serum 6.6 g/dl (6.3-8.2); White Blood Count 7.6 K/mm3 (4.8-10.8)
[2023-05-17 18:17] LABS: Triglycerides 506 mg/dl (30-150)
[2023-05-17 18:23] LABS: NT Pro Brain Natriuretic Pep. < 20.0 pg/mL (0-125)
[2023-05-17 18:25] LABS: Direct LDL Cholesterol 131.32 mg/dL (100-129)
[2023-05-17 18:44] LABS: Prostate Specific Ag Screen 1.7 ng/ml (0.0-4.0); Thyroid Stimulating Hormone 1.51 uIU/mL (0.465-4.68)
[2023-05-17 19:53] LABS: Hemoglobin A1C 7.2 % (4.0-6.0)
== END ==
LOC: LAB.DROPOF 05-18 08:45
PROVIDERS: PCP Family Medicine; Visit Provider Family Medicine
DX: Z00.00 Encounter for general adult medical examination without abnormal findings (principal); B34.9 Viral infection, unspecified; J02.9 Acute pharyngitis, unspecified; B95.1 Streptococcus, group B, as the cause of diseases classified elsewhere; Z79.899 Other long term (current) drug therapy
CPT/HCPCS: 80053; 80061; 83036; 83880; 84443; 85025; 87070; 87636; G0103

== ENCOUNTER 2023-12-09 09:05 | Emergency (ER) | payer BC, SELFPAY ==
[2023-12-09 09:10] VITALS: BP 164/95; PULSE 83; RESP 21; TEMP 36.8; O2SAT 96; BMI 39.0
--- NOTE | 2023-12-09 09:18 | XR_ITS ---
FINAL REPORT CLINICAL HISTORY: pain FINDINGS: Left hip THREE VIEW FINDINGS: Three views show no evidence of an acute, displaced fracture or dislocation of the visualized bony architecture. Mild degenerative joint disease is present. IMPRESSION: Degenerative changes. No acute bony abnormality . Authenticated and ERN
--- NOTE | 2023-12-09 09:26 | EXP.UTC ---
Discharge Plan Disposition Patient Disposition: Home, Self-Care Condition: Good Prescriptions Prescriptions: New methylprednisolone 4 mg Tablets,Dose Pack 4 mg PO DIRECTED 6 Days Qty: 21 0RF Rx Instructions: Take 1 pack as directed for 6 days No Action diltiazem HCl 240 mg capsule,extended release 24hr 240 mg PO DAILY amoxicillin-pot clavulanate 875-125 mg tablet 1 tab PO BID Qty: 14 0RF losartan 50 mg tablet 50 mg PO DAILY Qty: 90 3RF Jardiance 10 mg tablet 10 mg PO DAILY Qty: 30 2RF atorvastatin [Lipitor] 80 mg tablet 80 mg PO DAILY Qty: 30 2RF isosorbide mononitrate 30 mg tablet extended release 24 hr See Rx Instructions .Route .COMPLEX Qty: 90 3RF Rx Instructions: TAKE ONE TABLET BY MOUTH ONCE A DAY FOR HEART/ BLOOD PRESSURE cholecalciferol (vitamin D3) 25 mcg (1,000 unit) capsule 1,000 unit PO DAILY Qty: 90 0RF cholecalciferol (vitamin D3) 1,250 mcg (50,000 unit) capsule 50,000 unit PO WEEKLY Qty: 12 0RF colchicine 0.6 mg tablet 0.6 mg PO DAILYP PRN (Reason: gout) Qty: 90 2RF Xarelto 20 mg tablet See Rx Instructions .ROUTE .COMPLEX Qty: 30 0RF Dose Instruction: TAKE ONE TABLET BY MOUTH EVERY EVENING FOR AFIB Rx Instructions: TAKE ONE TABLET BY MOUTH EVERY EVENING FOR AFIB meloxicam 15 mg tablet 15 mg PO DAILY spironolactone 25 mg tablet See Rx Instructions .ROUTE .COMPLEX Rx Instructions: TAKE ONE TABLET BY MOUTH ONCE A DAY bisoprolol fumarate 5 mg tablet 5 mg PO DAILY pantoprazole 40 mg tablet,delayed release (DR/EC) See Rx Instructions .ROUTE .COMPLEX Rx Instructions: TAKE ONE TABLET BY MOUTH ONCE A DAY furosemide [Lasix] 20 mg tablet 20 mg PO DAILY metformin 500 mg tablet extended release 24 hr See Rx Instructions .ROUTE .COMPLEX Rx Instructions: TAKE ONE TABLET BY MOUTH ONCE A DAY Referrals Follow up/Referrals: Hugh Hawk DO [Staff Physician] - See instructions Provider,Referral, [Primary Care Provider] - See instructions Activity Restrictions/Add. Instructions Additional Instructions/Restrictions: Go home and rest. It would be best if you rested tomorrow too. No heavy lifting. No twisting. Try to lay around and rest as much time as possible for the next few days. Don't start the oral steroids (medrol dose pack) until tomorrow, since you had the shots in here today. Follow up with your regular doctor. We will give you a list of primary care physicians that are taking new patients. Please pick one and call and get an appointment to be seen by one. I put in a referral to the orthopedic physician (Dr. Hawk). If your hip continues to hurt you should follow up with him. His office phone number will be on this paperwork. GO TO THE ER FOR ANY WORSENING SYMPTOMS OR CONCERN, ESPECIALLY BOWEL OR BLADDER ISSUES, SADDLE AREA NUMBNESS, FEVER, ETC Clinical Impressions Clinical Impression: Left hip pain, Osteoarthritis of left hip Stand Alone Forms Stand Alone Forms: Work/School Release Instructions Patient Instructions: DI for Osteoarthritis, Ketorolac Injection, Dexamethasone Injection, DI for Hip Pain Discharge ED Provider: Colby Sagastume [facility] General Stated complaint: Pain in R hip Mode of Arrival: Ambulatory Source of Information: Patient Limitations: No Limitations Time Seen by Provider: 12/09/23 09:26 Description of Symptoms (Recalled from Triage Doc. by RN): PATIENT C/O LEFT HIP PAIN X 1 WEEK. 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 He denies any trauma or falls. He denies any urinary symptoms. Related Data Home Medications Medication Instructions Recorded Confirmed diltiazem HCl 240 mg 240 mg PO DAILY Heart rate 11/10/20 05/17/23 capsule,extended release 24 hr bisoprolol fumarate 5 mg tablet 5 mg PO DAILY BLOOD PRESSURE 08/22/22 05/23/23 furosemide 20 mg tablet (Lasix) 20 mg PO DAILY Fluid 08/22/22 05/23/23 meloxicam 15 mg tablet 15 mg PO DAILY Pain 08/22/22 05/23/23 metformin 500 mg tablet,extended See Rx Instructions .Route 08/22/22 05/23/23 release 24 hr .COMPLEX Diabetes pantoprazole 40 mg tablet,delayed See Rx Instructions .Route 08/22/22 05/23/23 release .COMPLEX GERD spironolactone 25 mg tablet See Rx Instructions .Route 08/22/22 05/23/23 .COMPLEX Fluid Previous Rx's Medication Instructions Recorded isosorbide mononitrate 30 mg See Rx Instructions .Route 06/28/21 tablet,extended release 24 hr .COMPLEX HTN #90 tabs cholecalciferol (vitamin D3) 1,250 50,000 unit PO WEEKLY Supplement 08/22/21 mcg (50,000 unit) capsule #12 caps cholecalciferol (vitamin D3) 25 1,000 unit PO DAILY Supplement #90 08/22/21 mcg (1,000 unit) capsule caps colchicine 0.6 mg tablet 0.6 mg PO DAILYP PRN gout #90 tabs 02/02/22 rivaroxaban 20 mg tablet (Xarelto) See Rx Instructions .Route 05/07/23 .COMPLEX #30 tabs amoxicillin 875 mg-potassium 1 tab PO BID Sinus infection #14 05/23/23 clavulanate 125 mg tablet tabs atorvastatin 80 mg tablet (Lipitor) 80 mg PO DAILY #30 tabs 05/23/23 empagliflozin 10 mg tablet 10 mg PO DAILY #30 tabs 05/23/23 (Jardiance) losartan 50 mg tablet 50 mg PO DAILY #90 tabs 05/23/23 methylprednisolone 4 mg tablets in 4 mg PO DIRECTED 6 days #21 tabs 12/09/23 a dose pack Allergies Allergy/AdvReac Type Severity Reaction Status Date / Time lisinopril Allergy cough Verified 05/23/23 10:54 Worker's Comp Is this a Worker's Comp case?: No [facility] Disclaimer: The information contained in this section may have been updated after the patient was seen, as this information can be updated by other users. Medical History Chest pressure Edema Gastroesophageal reflux disease Surgical History History of coronary artery stent placement Family History Other No significant family history Social History Smoking Status: Never smoker alcohol intake: never substance use type: denies use current occupational status: employed Travel in the last 8 weeks: None household members: spouse housing: house current occupational exposures/hazards: No caffeine: No ROS Obtained: Yes All systems reviewed & no additional complaints except as documented Constitutional Constitutional: Denies chills and Denies fever(s) Eyes Eyes: Denies eye discharge ENT Ears, Nose, Mouth, and Throat: Denies dizziness, Denies otalgia, Denies neck pain and Denies sore throat Cardiovascular Cardiovascular: Denies chest pain Respiratory Respiratory: Denies shortness of breath, Denies chest congestion, Denies cough, Denies stridor and Denies wheezing Gastrointestinal Gastrointestingal: Denies nausea or vomiting Genitourinary Male Genitourinary: Reports as per HPI, Denies difficulty urinating, Denies hematuria, Denies urinary frequency and Denies urinary hesitancy Musculoskeletal Musculoskeletal: Reports as per HPI, Reports back pain and Denies neck pain Integumentary/Breasts Skin/Breast: Denies rash Neurologic Neurologic: Denies dizziness and Denies paresthesias Allergic/Immunologic Allergic/Immunologic: Denies wheezing Physical Exam General General appearance: alert and in no apparent distress Head Head exam: atraumatic, normocephalic and normal inspection Eye Eye exam: Present normal appearance, PERRL and EOMI ENT ENT exam: Present normal exam, normal oropharynx, mucous membranes moist, TM's normal bilaterally and normal external ear exam Neck Neck exam: Present normal inspection, full ROM and trachea midline; Absent meningismus or lymphadenopathy Chest Chest inspection: Present normal inspection and symmetric chest wall rise; Absent tenderness Respiratory Respiratory exam: Present normal lung sounds bilaterally; Absent respiratory distress Cardiovascular Cardiovascular exam: Present regular rate and normal rhythm; Absent JVD Abdominal Exam Abdominal exam: Present soft and normal bowel sounds; Absent distention, tenderness or guarding Extremities Exam Extremities exam: Present normal inspection, full ROM and normal capillary refill; Absent calf tenderness Back Exam Back exam: Present normal inspection; Absent tenderness Neurological Exam Neurological exam: Present alert, oriented X3, CN II-XII intact, normal gait and reflexes normal; Absent motor sensory deficit Expanded Neurological Exam Cranial nerves: Normal: EOM function (II, III, IV, ), facial sensation (V), facial palsy (VII), gag reflex (IX), spinal accessory function (XI) and tongue deviation (XII) Cerebellar function: normal gait Motor strength - LUE: 5/5 Motor strength - RUE: 5/5 Motor strength - LLE: 5/5 Motor strength - RLE: 5/5 Sensory exam upper extremity: Normal: light touch and 2 point discrimination Sensory exam lower extremity: Normal: light touch and 2 point discrimination DTR: 2+: biceps (L), biceps (R), patellar (L), patellar (R), Achilles tendon (L) and Achilles tendon (R) Spinal cord function: Absent saddle anesthesia Psychiatric Psychiatric exam: Present normal affect and normal mood Skin Skin exam: Present warm, dry, intact and normal color Lymphatic Lymphatic Findings: no adenopathy Medical Decision Making Medical Records Medical records reviewed: No I reviewed the patient's medical records. Julien Inquiry Pt receiving controlled substance: No Vital Signs: 12/09/23 09:10 Temperature 98.3 F Temperature Source Oral Pulse Rate [Left Brachial] 83 Respiratory Rate 21 Blood Pressure [Left Arm] 164/95 H Blood Pressure Mean [Left Arm] 118 Blood Pressure Source [Left Arm] Automatic Cuff Blood Pressure Position [Left Arm] Sitting 02 Sat by Pulse Oximetry 96 Oxygen Delivery Method Room Air Orders (Tests/Meds): ORDERS Category Date Time Status Hip XR left minimum 2 views [XR hip LT 2-3V w/pelvis] Exams 12/09/23 09:18 Ordered Stat
[2023-12-09] MEDS: KETOROLAC 60MG/2ML VIAL 30 MG IM (09:52)
[2023-12-09] MEDS: DEXAMETHASONE 4MG/ML 1ML VIAL 8 MG IM (09:52)
[2023-12-09 10:12] VITALS: BP 164/95; PULSE 83; RESP 21; TEMP 36.8; O2SAT 96
== END 2023-12-09 10:18 | disposition home or self-care (01) ==
PROVIDERS: Emergency Provider Nurse Practitioner Family
DX: M25.552 Pain in left hip (principal); M16.12 Unilateral primary osteoarthritis, left hip
CPT/HCPCS: 73502; 96372; 99212; 99214; G0463; J1100; J1885

== ENCOUNTER 2024-02-18 14:39 | Outpatient (CLI) | payer BC, SELFPAY ==
--- NOTE | 2024-02-18 14:48 | XR_ITS ---
FINAL REPORT CLINICAL HISTORY: PAIN, left hip x3 months COMPARISON: None FINDINGS: LEFT HIP: Two views of the left hip demonstrate no acute fracture or dislocation. The joint spaces appear normal. The visualized bony structures are well aligned. No soft tissue abnormality is seen. IMPRESSION: No acute bony abnormality. Reviewed, Interpreted and Dictated by Alec Chamberlain MD Transcribed by Sherron Donaldson Authenticated and . [facility]
== END 2024-02-18 23:59 | disposition home or self-care (01) ==
LOC: RAD 14:40
PROVIDERS: PCP Family Medicine; Visit Provider Family Medicine
DX: M25.552 Pain in left hip (principal)
CPT/HCPCS: 73502

== ENCOUNTER 2024-02-20 09:31 | Outpatient (CLI) | payer BC, SELFPAY ==
--- NOTE | 2024-02-20 09:35 | XR_ITS ---
FINAL REPORT CLINICAL HISTORY: LT HIP PAIN, BACK PAIN FINDINGS: The vertebrae are normal height. Alignment is within normal limits. There are mild anterior osteophytes at L2-3. There is moderate facet sclerosis of the lower lumbar spine. The disc spaces are preserved. Prevertebral soft tissues are unremarkable. There is no instability with flexion or extension. IMPRESSION: No acute process. Reviewed, Interpreted and Dictated by Alec Chamberlain MD Transcribed by Nicole Stearns Authenticated and [facility]
== END 2024-02-20 23:59 | disposition home or self-care (01) ==
LOC: RAD 09:32
PROVIDERS: PCP Family Medicine; Visit Provider Family Medicine
DX: M25.552 Pain in left hip (principal); M54.9 Dorsalgia, unspecified
CPT/HCPCS: 72114

== ENCOUNTER 2024-02-28 08:51 | Outpatient (CLI) | payer BC, SELFPAY ==
--- NOTE | 2024-02-28 08:53 | MR_ITS ---
FINAL REPORT CLINICAL HISTORY: LEFT HIP PAIN X 4 MONTHS FINDINGS: Multiplanar MR imaging of the left hip was performed with and without contrast. There is bone marrow edema throughout the left femoral head and neck. There is abnormal signal involving the superior left femoral head with an appearance most consistent with avascular necrosis. Abnormal signal measures 34 mm in AP dimension and 36 mm in transverse dimension. No bony mass is identified. There is a posterior superior labral tear. A small joint effusion is seen. There is a small partial tear of the distal gluteus minimus tendon. The musculature is intact. No soft tissue mass or cyst is identified. Postcontrast images demonstrate contrast enhancement of the left femoral head and neck which is nonspecific. IMPRESSION: Bone marrow edema throughout the left femoral head and neck with contrast enhancement in this region. Findings consistent with avascular necrosis. Posterior superior labral tear. Small partial tear of the distal gluteus minimus tendon. Reviewed, Interpreted and Dictated by David Ruano III, MD Transcribed by Snow Coburn Authenticated and [facility]
[2024-02-28 09:22] LABS: Blood Urea Nitrogen 12 mg/dl (9-20); Estimated Glomerular Filt Rate 98 ml/min (>60); GFR (African American) 118 ML/MIN (>60)
[2024-02-28] MEDS: GADOTERIDOL INJ 10ML SYRINGE 6 ML IV (10:26)
[2024-02-28] MEDS: GADOTERIDOL INJ 20ML SYRINGE 20 ML IV (10:26)
[2024-02-28] MEDS: SODIUM CHLORIDE 0.9% 10ML SYR (RAD ONLY) 10 ML IV (10:26)
== END 2024-02-28 23:59 | disposition home or self-care (01) ==
LOC: RAD 08:51
PROVIDERS: PCP Family Medicine; Visit Provider Family Medicine
DX: M25.552 Pain in left hip (principal); M19.90 Unspecified osteoarthritis, unspecified site
CPT/HCPCS: 36415; 73723; 82565; 84520; A9576

== ENCOUNTER 2024-11-18 10:02 | Outpatient (CLI) | payer BC, SELFPAY ==
--- OUTSIDE RECORDS SUMMARY | 2024-11-18 10:19 | XMS_ITS | Encounter Summary ---
Author Organization [employer] ([place], [place], [place], [place]) Address [address] [place] [address] Care Team Providers Care Assembler Tractor Name Role Phone Unavailable Primary Care Provider Unavailabl e Encounter Details Date Type Department Care Team (Late st Contact Info) Description 07/29/2018 Transcribed Document [facility] Family Medicine [address] [place] [address] ProviderFlaquito MD [address] [place] [address] Social History Tobacco Use Types Packs/Day Years Used Date Smoking Tobacco: Never Assessed Sex and Gender Information Value Date Recorded Sex Assigned at Not on file Legal Sex Male 1:20 PM CDT Gender Identity Not on file Sexual Orientation Not on file documented as of this encounter Miscellaneous Notes * [employer] Conversion Note - Historical ProviderMD - 07/29/2018 11:22 PM CDT Electronically signed by Interface, [facility] [employer] President Cerner at 09/04/2022 5:19 PM CDT documented in this encounter Plan of Treatment Not on file documented as of this encounter Visit Diagnoses Not on filedocumented in this encounter
--- OUTSIDE RECORDS SUMMARY | 2024-11-18 10:19 | XMS_ITS | Encounter Summary ---
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 Name Role Phone Unavailable Primary Care Provider Unavailabl e Encounter Details Date Type Department Care Team (Late st Contact Info) Description 07/29/2018 Transcribed Document [facility] [place] Family Medicine [address] [place] [address] ProviderFlaquito MD [address] [place] [address] Social History Tobacco Use Types Packs/Day Years Used Date Smoking Tobacco: Never Assessed Sex and Gender Information Value Date Recorded Sex Assigned at Not on file Legal Sex Male 1:20 PM CDT Gender Identity Not on file Sexual Orientation Not on file documented as of this encounter Miscellaneous Notes * Cerner Conversion Note - Flaquito ProviderMD - 07/29/2018 7:08 PM CDT ED Triage Entered On: 07/29/2018 19:18 EDT Performed On: 07/29/2018 19:14 EDT by Su Liang ASPHALT DISTRIBUTOR OPERATOR Triage Across the Room Triage Date/Time : 07/29/2018 19:14 EDT Chief Complaint : patient with complaints of bilateral shoulder pain,cough, nausea/vomiting and increased heart rate that started yesterday. Su Liang RN - 07/29/2018 19:14 EDT DCP GENERIC CODE Tracking Acuity : 3 - Urgent Tracking Group : [facility] ED Su Liang RN - 07/29/2018 19:14 EDT Mode of Arrival : Ambulatory Transported to ED by : Private vehicle To Room Via : Wheelchair Accompanied By : Spouse ED Vital Signs : Document Height & Weight : Document ED Allergies : Document ED Reason for Visit : Document Tetanus Immunization : Greater than 5 years Tried to Harm Yourself in the Past? : No Thoughts of Harming/Killing Yourself : No Recent Thoughts of Harming/Killing Others : No Worm Picker Needed : No Su Liang RN - 07/29/2018 19:14 EDT Infectious Disease History Infectious Disease History : None Fever/Chills Last 48 Hours : No Travel To Regions with Travel Advisories : No Travel Outside [place] Within Last 30 Days : No Contact With Traveler to Advisory Region : No Tuberculosis Symptoms : None Su Liang RN - 07/29/2018 19:14 EDT Vital Signs ED Temperature Source : Oral Temperature Mode : Fahrenheit Temperature, Fahrenheit : 98.0 Deg F ED Pain : Yes Clinical Temperature, C : 36.7 Deg C Oxygen Therapy Mode : Room air Peripheral Pulse Rate : 112 bpm (HI) Respiratory Rate : 19 Breaths/Min Systolic Blood Pressure : 159 mmHg (HI) Diastolic Blood Pressure : 96 mmHg (HI) Oxygen Saturation : 96 % Su Liang RN - 07/29/2018 19:14 EDT Allergy (As Of: 07/29/2018 19:18:06 EDT) Allergies (Active) No Known Allergies Estimated Onset Date: Unspecified ; Created By: [email or web address]; Reaction Status: Active ; Category: Drug ; Substance: No Known Allergies ; Type: Allergy ; Updated By: FAUSTO BEAUCHAMP; Reviewed Date: 07/29/2018 19:15 EDT Diagnosis Control ED (As Of: 07/29/2018 19:18:06 EDT) Problems(Active) Atrial fibrillation with RVR (SNOMED CT :5780798524 ) Name of Problem: Atrial fibrillation with RVR ; Recorder: CINTHIA CAMARENA APR; Confirmation: Confirmed ; Classification: Medical ; Code: [id number] ; Contributor System: Digital Fortress ; Last Updated: 08/30/2016 5:16 EDT ; Life Cycle Status: Active ; Responsible Provider: CINTHIA CAMARENA APR; Vocabulary: SNOMED CT CAD (coronary artery disease) (SNOMED CT :8324045244 ) Name of Problem: CAD (coronary artery disease) ; Recorder: Merlin Kern RN; Confirmation: Confirmed ; Classification: Medical ; Code: [id number] ; Contributor System: DatanomicChart ; Last Updated: 08/30/2016 5:16 EDT ; Life Cycle Date: 05/17/2016 ; Life Cycle Status: Active ; Vocabulary: SNOMED CT Chest pain (SNOMED CT :86813974 ) Name of Problem: Chest pain ; Recorder: CINTHIA CAMARENA, FRANCES; Confirmation: Complaint of ; Classification: Medical ; Code: [id number] ; Contributor System: PowerChart ; Last Updated: 08/30/2016 5:16 EDT ; Life Cycle Status: Active ; Responsible Provider: CINTHIA CAMARENA APR; Vocabulary: SNOMED CT Diabetes (SNOMED CT :161456010 ) Name of Problem: Diabetes ; Recorder: Merlin Kern RN; Confirmation: Confirmed ; Classification: Medical ; Code: [id number] ; Contributor System: PowerChart ; Last Updated: 08/30/2016 5:16 EDT ; Life Cycle Date: 05/17/2016 ; Life Cycle Status: Active ; Vocabulary: SNOMED CT Gout (SNOMED CT :455662485 ) Name of Problem: Gout ; Recorder: Merlin Kern RN; Confirmation: Confirmed ; Classification: Medical ; Code: [id number] ; Contributor System: PowerChart ; Last Updated: 08/30/2016 5:16 EDT ; Life Cycle Date: 05/17/2016 ; Life Cycle Status: Active ; Vocabulary: SNOMED CT High cholesterol (SNOMED CT :16052402 ) Name of Problem: High cholesterol ; Recorder: Merlin Kern RN; Confirmation: Confirmed ; Classification: Medical ; Code: 09665412 ; Contributor System: PowerChart ; Last Updated: 08/30/2016 5:16 EDT ; Life Cycle Date: 05/17/2016 ; Life Cycle Status: Active ; Vocabulary: SNOMED CT HTN (hypertension) (SNOMED CT :8530272512 ) Name of Problem: HTN (hypertension) ; Recorder: Merlin Kern RN; Confirmation: Confirmed ; Classification: Medical ; Code: [id number] ; Contributor System: PowerChart ; Last Updated: 08/30/2016 5:16 EDT ; Life Cycle Date: 05/17/2016 ; Life Cycle Status: Active ; Vocabulary: SNOMED CT Palpitations (SNOMED CT :772425597 ) Name of Problem: Palpitations ; Recorder: CINTHIA CAMARENA, FRANCES; Confirmation: Complaint of ; Classification: Medical ; Code: [id number] ; Contributor System: Digital Fortress ; Last Updated: 08/30/2016 5:16 EDT ; Life Cycle Status: Active ; Responsible Provider: CINTHIA CAMARENA APR; Vocabulary: SNOMED CT Diagnoses(Active) Tachycardia Date: 07/29/2018 ; Diagnosis Type: Reason For Visit ; Confirmation: Complaint of ; Clinical Dx: Tachycardia ; Classification: Medical ; Clinical Service: Emergency medicine ; Code: PNED ; Probability: 0 ; Diagnosis Code: [id number] ED Height and Weight Height Source : Stated Height Entry Format : [place] Height, Feet : 5 ft(Converted to: 152 cm, 60 Inch) Height, Inches : 11 Inch(Converted to: 0 ft 11 Inch, 27.94 cm) Clinical Height : 180.34 cm Weight Source, ED : Critical estimated dosing weight Weight Entry Format : [place] Weight, Pounds : 280 lb Clinical Dosing Weight : 127.27 kg Body Surface Area (BSA) : 2.44 m2 Body Mass Index : 39.1 kg/m2 (HI) [place] Body Weight (IBW) : 74.31 kg Su Liang RN - 07/29/2018 19:14 EDT Pain Assessment Pain Assessment : Initial assessment Pain Scale Used : 0-10 Scale Location : Shoulder, left, Shoulder, right Su Liang RN - 07/29/2018 19:14 EDT Pain Scale Intensity : 4 Su Liang RN - 07/29/2018 19:14 EDT Image 4 - Images currently included in the form version of this document have not been included in the text rendition version of the form. Electronically signed by Sima Valderrama Conversion Assistant Signal Maintainer Cerner at 09/04/2022 5:19 PM CDT documented in this encounter Plan of Treatment Not on file documented as of this encounter Visit Diagnoses Not on filedocumented in this encounter
--- OUTSIDE RECORDS SUMMARY | 2024-11-18 10:19 | XMS_ITS | Encounter Summary ---
Author Organization [employer] ([place], [place], [place], [place]) Address [address] [place] [address] Care Team Providers Care Tractor Trailer Driver Name Role Phone Unavailable Primary Care Provider Unavailabl e Encounter Details Date Type Department Care Team (Late st Contact Info) Description 07/29/2018 Transcribed Document [facility] [place] [address] [place] [address] ProviderFlaquito MD [address] [id number] Social History Tobacco Use Types Packs/Day Years Used Date Smoking Tobacco: Never Assessed Sex and Gender Information Value Date Recorded Sex Assigned at Not on file Legal Sex Male 1:20 PM CDT Gender Identity Not on file Sexual Orientation Not on file documented as of this encounter Miscellaneous Notes * Cerner Conversion Note - Flaquito ProviderMD - 07/29/2018 7:08 PM CDT ED Assessment Entered On: 07/29/2018 20:52 EDT Performed On: 07/29/2018 20:50 EDT by Tahir Restrepo RN ED Quick Look Assessment Level of Consciousness : Alert, Awake Affect/Behavior : Appropriate, Calm Orientation : Oriented x 4 Tahir Restrepo RN - 07/29/2018 20:50 EDT ED General-Functional Assess Information Obtained From : Patient Communication Barrier : None Primary Language : [place] Any Spiritual/Cultural Needs or Requests : No Currently in Unsafe Situation : No Tahir Restrepo RN - 07/29/2018 20:50 EDT Social Habits Smoking Status : Never (less than 100 in lifetime; none in last 30 days) Smokeless Tobacco Status : Smokeless tobacco user within last 30 days Desires Tobacco Cessation Medication : No Reason for No Tobacco Cessation Medication : Refuses FDA approved medications Desires Tobacco Cessation Calc : 1 Tahir Restrepo RN - 07/29/2018 20:50 EDT Social History (As Of: 07/29/2018 20:52:59 EDT) Tobacco: Use in Last 12 Months: Snuff/Dip. Smoking Status Light tobacco smoker. (Last Updated: 09/27/2014 10:20:40 EDT by Belinda Jarrell RN) Home/Environment: Living situation: Home/Independent. (Last Updated: 09/27/2014 11:42:38 EDT by MARIIA LANGE MD-EMR) Employment/School: Employed (Last Updated: 09/27/2014 11:42:45 EDT by MARIIA LANGE MD-EMR) EENT Assessment EENT Assessment WDL : Tahir Romo RN - 07/29/2018 20:50 EDT Cardiovascular ASMT, ED Cardiovascular Assessment WDL : RY with exceptions (Comment: pt here c/o chest pain that started yesterday states that he thinks that hes been in afib has hx of afib. pt also states that his BP has been elevated. pt states pain is upper left chest denies SOA [Tahir Restrepo RN - 07/29/2018 20:50 EDT] ) Tahir Restrepo RN - 07/29/2018 20:50 EDT Respiratory Respiratory Assessment WDL : Tahir Romo RN - 07/29/2018 20:50 EDT Gastrointestinal ED Gastrointestinal Assessment WDL : Tahir Romo RN - 07/29/2018 20:50 EDT Genitourinary Assessment, ED Genitourinary Assessment WDL : Tahir Romo RN - 07/29/2018 20:50 EDT Musculoskeletal Musculoskeletal Assessment WDL : Tahir Romo RN - 07/29/2018 20:50 EDT Integumentary Assessment Integumentary Assessment WDL : Tahir Romo RN - 07/29/2018 20:50 EDT Neurologic ASMT, ED Neurologic Assessment WDL : Tahir Romo RN - 07/29/2018 20:50 EDT documented in this encounter Plan of Treatment Not on file documented as of this encounter Visit Diagnoses Not on filedocumented in this encounter
--- OUTSIDE RECORDS SUMMARY | 2024-11-18 10:19 | XMS_ITS | Encounter Summary ---
Author Organization [employer] ([place], [place], [place], [place]) Address [address] [place] [address] Care Team Providers Care Pest Control Service Technician Name Role Phone Unavailable Primary Care Provider Unavailabl e Encounter Details Date Type Department Care Team (Late st Contact Info) Description 07/30/2018 Transcribed Document [facility] [place] [address] [place] [address] ProviderFlaquito MD [address] [place] [address] Social History Tobacco Use Types Packs/Day Years Used Date Smoking Tobacco: Never Assessed Sex and Gender Information Value Date Recorded Sex Assigned at Not on file Legal Sex Male 1:20 PM CDT Gender Identity Not on file Sexual Orientation Not on file documented as of this encounter Miscellaneous Notes * Cerner Conversion Note - Flaquito ProviderMD - 07/30/2018 12:00 AM CDT ED Discharge Entered On: 07/30/2018 0:00 EDT Performed On: 07/30/2018 0:00 EDT by Chelsey Davey Rn Discharge Process Patient Disposition : Discharge Personal Belongings With Patient : Yes Patient Education Completed : Yes Teaching Evaluation : Returns demonstration, Verbalizes understanding IV Discontinued : Yes Nursing Documentation Completed : No Chelsey Davey Rn - 07/30/2018 0:00 EDT ED Discharge Discharge To : Home with ambulatory/outpatient follow-up Mode Of Departure : Ambulatory Accompanied By : Spouse Discharge Instructions Reviewed With, Opportunity For Questions Given : Patient Prescriptions Given to Patient : No Medications Given to Patient : No Chelsey Davey Rn - 07/30/2018 0:00 EDT documented in this encounter Plan of Treatment Not on file documented as of this encounter Visit Diagnoses Not on filedocumented in this encounter
--- OUTSIDE RECORDS SUMMARY | 2024-11-18 10:19 | XMS_ITS | Encounter Summary ---
Author Organization [employer] ([place], [place], [place], [place]) Address [address] [place] [address] Care Team Providers Care Software Development Project Manager Name Role Phone Unavailable Primary Care Provider Unavailabl e Encounter Details Date Type Department Care Team (Late st Contact Info) Description 07/30/2018 Transcribed Document [facility] [place] [address] [place] [address] ProviderFlaquito MD [address] [place] [address] Social History Tobacco Use Types Packs/Day Years Used Date Smoking Tobacco: Never Assessed Sex and Gender Information Value Date Recorded Sex Assigned at Not on file Legal Sex Male 1:20 PM CDT Gender Identity Not on file Sexual Orientation Not on file documented as of this encounter Miscellaneous Notes * Cerner Conversion Note - Flaquito ProviderMD - 07/30/2018 12:01 AM CDT [address] [place] [address] PERSON INFORMATION Name RENE GREENBERG Age 57 Years 1960 Sex Male Language Citizen Of [place] PCP [address] Marital Status Med Service Emergency Medicine Acct# Arrival 07/29/2018 19:08:00 Visit Reason Tachycardia; HIGH BP/HEART RATE Acuity 3 - Urgent LOS 000 04:53 Depart Date: 07/30/18 00:01 AM Address: [address] [place] [address] [place] [id number] Comment: PROVIDER INFORMATION Provider Role Assigned Unassigned Chelsey Davey Rn ED Nurse 07/29/2018 20:46:56 DOMONIQUE MEIER MD ED Physician 07/29/2018 20:52:44 DIAGNOSIS Chest wall pain PHYS DOC NOTES VITALS INFORMATION Vital Sign Triage Latest Temp Source Oral Oral Temp Mode Fahrenheit Fahrenheit Temp Fahrenheit 98.0 Deg F 98.0 Deg F Temp Celsius 02 Sat 96 % 96 % Respiratory Rate 19 Breaths/Min 20 Breaths/Min Peripheral Pulse Rate 112 bpm 112 bpm Apical Heart Rate Blood Pressure 159 mmHg / 96 mmHg 165 mmHg / 89 mmHg Comment: MEDICAL INFORMATION Allergy Info: No Known Allergies Medications: Comment: DISCHARGE INFORMATION Discharge Disposition: Home Discharge Location: PATIENT EDUCATION INFORMATION Instructions: Chest Wall Pain Follow up: With: Address: When: [facility]ON[facility] [address] [place] [address], [address] [place] [address] Business (1) Within 2 to 3 days With: Address: When: [facility] Within 2 to 3 days Comments: Please contact the Patient Resource Center at if you need assistance scheduling a Specialist or Primary Care Provider in the future. Comment: documented in this encounter Plan of Treatment Not on file documented as of this encounter Visit Diagnoses Not on filedocumented in this encounter
--- OUTSIDE RECORDS SUMMARY | 2024-11-18 10:19 | XMS_ITS | Encounter Summary ---
Author Organization [employer] ([place], [place], [place], [place]) Address [address] [place] [address] Care Team Providers Care Financial Sales Assistant Name Role Phone Unavailable Primary Care Provider Unavailabl e Encounter Details Date Type Department Care Team (Late st Contact Info) Description 07/30/2018 Transcribed Document [facility] [place] Family Medicine [address] [place] [address] ProviderFlaquito MD [address] [place] [address] Social History Tobacco Use Types Packs/Day Years Used Date Smoking Tobacco: Never Assessed Sex and Gender Information Value Date Recorded Sex Assigned at Not on file Legal Sex Male 1:20 PM CDT Gender Identity Not on file Sexual Orientation Not on file documented as of this encounter Miscellaneous Notes * Cerner Conversion Note - Historical ProviderMD - 07/30/2018 6:06 PM CDT CR Chest 2 Vws Ordered: 07/29/2018 Auth (Verified) Reason for Exam: Cough 07/30/2018 08:38 07/30/2018 18:06 (JUANITO CARRANZA APRN) Reviewed by Provider, No further action required x1 documented in this encounter Plan of Treatment Not on file documented as of this encounter Visit Diagnoses Not on filedocumented in this encounter
--- OUTSIDE RECORDS SUMMARY | 2024-11-18 10:19 | XMS_ITS | Referral Summary ---
Author Organization [employer] ([place], [place], [place], [place]) Address [address] [place] [address] Care Team Providers Care Director Of Math Name Role Phone Unavailable Primary Care Provider Unavailabl e Social History Tobacco Use Types Packs/Day Years Used Date Smoking Tobacco: Never Assessed Sex and Gender Information Value Date Recorded Sex Assigned at Not on file Legal Sex Male 1:20 PM CDT Gender Identity Not on file Sexual Orientation Not on file Plan of Treatment Not on file
--- OUTSIDE RECORDS SUMMARY | 2024-11-18 10:19 | XMS_ITS | Encounter Summary ---
Author Organization [employer] ([place], [place], [place], [place]) Address [address] [place] [address] Care Team Providers Care Slab Inspector Name Role Phone Unavailable Primary Care Provider Unavailabl e Encounter Details Date Type Department Care Team (Late st Contact Info) Description 07/30/2018 Transcribed Document [facility] [place] [address] [place] [address] ProviderFlaquito MD [address] [place] [address] Social History Tobacco Use Types Packs/Day Years Used Date Smoking Tobacco: Never Assessed Sex and Gender Information Value Date Recorded Sex Assigned at Not on file Legal Sex Male 1:20 PM CDT Gender Identity Not on file Sexual Orientation Not on file documented as of this encounter Miscellaneous Notes * Cerner Conversion Note - Flaquito ProviderMD - 07/30/2018 12:01 AM CDT [address] [place] [id number] Patient Information Name: RENE GREENBERG Age: 57 Years Date of : 1960 Arrival Time: 07/29/2018 19:08:00 Diagnosis Chest wall pain Primary Care Physician: BRET SALAMANCA DR Provider Information Primary Provider: DOMONIQUE MEIER Secondary Provider: RENE GREENBERG has been given the following list of patient education materials, prescriptions and follow-up instructions: Follow-up Instructions: With: Address: When: BARB LEONARD [address] [facility], [address] [place], [place] [id number] Business (1) Within 2 to 3 days With: Address: When: [facility] Within 2 to 3 days Comments: Please contact the Patient Resource Center at if you need assistance scheduling a Specialist or Primary Care Provider in the future. Patient Education Materials: Chest Wall Pain Chest wall pain is pain in or around the bones and muscles of your chest. Sometimes, an injury causes this pain. Sometimes, the cause may not be known. This pain may take several weeks or longer to get better. Follow these instructions at home: Pay attention to any changes in your symptoms. Take these actions to help with your pain: ??? Rest as told by your health care provider. ??? Avoid activities that cause pain. These include any activities that use your chest muscles or your abdominal and side muscles to lift heavy items. ??? If directed, apply ice to the painful area: ? Put ice in a plastic bag. ? Place a towel between your skin and the bag. ? Leave the ice on for 20 minutes, 2?3 times per day. ??? Take owej-per-hmgtiub and prescription medicines only as told by your health care provider. ??? Do notuse tobacco products, including cigarettes, chewing tobacco, and e-cigarettes. If you need help quitting, ask your health care provider. ??? Keep all follow-up visits as told by your health care provider. This is important. Contact a health care provider if: ??? You have a fever. ??? Your chest pain becomes worse. ??? You have new symptoms. Get help right away if: ??? You have nausea or vomiting. ??? You feel sweaty or light-headed. ??? You have a cough with phlegm (sputum) or you cough up blood. ??? You develop shortness of breath. This information is not intended to replace advice given to you by your health care provider. Make sure you discuss any questions you have with your health care provider. Document Released: 05/06/2006 Document Revised: 09/13/2016 Document Reviewed: 08/01/2015 Elsevier Interactive Patient Education ? 2017 [email or web address] Allergies: No Known Allergies Medication Information: Laboratory or Other Results This Visit (last charted value for your 07/29/2018 visit) Hematology 07/29/18 19:30:00 WBC: 10.2 K/uL -- Normal range between ( 3.6 and 9.5 ) RBC: 5.34 Million/uL -- Normal range between ( 4.20 and 5.70 ) Hct: 47.3 % -- Normal range between ( 40.1 and 51.0 ) Hgb: 16.6 g/dL -- Normal range between ( 13.5 and 17.3 ) Platelet Count: 271 K/uL -- Normal range between ( 163 and 369 ) MCH: 31.1 pg -- Normal range between ( 25.6 and 32.2 ) MCHC: 35.1 Gram/dL -- Normal range between ( 32.2 and 36.5 ) MCV: 88.6 fL -- Normal range between ( 79.0 and 94.8 ) Slide Review: No Eos %: 4.4 % -- Normal range between ( 0.0 and 7.0 ) [place] #: 0.80 K/uL -- Normal range between ( 0.16 and 1.00 ) Eos #: 0.45 x10(3)/uL -- Normal range between ( 0.00 and 0.80 ) [place] %: 7.8 % -- Normal range between ( 3.0 and 9.0 ) Baso %: 0.8 % -- Normal range between ( 0.0 and 1.5 ) Baso #: 0.08 x10(3)/uL -- Normal range between ( 0.00 and 0.20 ) RDW: 12.6 % -- Normal range between ( 11.7 and 14.9 ) Neut %: 66.5 % -- Normal range between ( 34.0 and 71.0 ) Neut #: 6.81 K/uL -- Normal range between ( 1.56 and 6.13 ) Lymph %: 20.3 % -- Normal range between ( 19.3 and 53.1 ) Lymph #: 2.08 x10(3)/uL -- Normal range between ( 1.00 and 3.90 ) MPV: 11.4 fL -- Normal range between ( 9.4 and 12.4 ) IG#: 0.02 x10(3)/uL -- Normal range between ( 0.00 and 0.05 ) IG%: 0.20 % -- Normal range between ( 0.00 and 0.60 ) General Chemistry 07/29/18 19:30:00 Creatinine Level: 1.20 mg/dL -- Normal range between ( 0.70 and 1.30 ) Sodium Level: 137 mmol/L -- Normal range between ( 136 and 146 ) Potassium Level: 4.1 mmol/L -- Normal range between ( 3.5 and 5.1 ) Chloride Level: 105 mmol/L -- Normal range between ( 102 and 112 ) Carbon Dioxide Level: 28 mmol/L -- Normal range between ( 21 and 32 ) Anion Gap: 8 -- Normal range between ( 9 and 20 ) Bun/Creatinine: 7.5 -- Normal range between ( 8.0 and 20.0 ) Calcium Level: 9.6 mg/dL -- Normal range between ( 8.4 and 10.1 ) eGFR : >60 mL/min/1.73m2 eGFR NonAfrican: >60 mL/min/1.73m2 Glucose Level: 144 mg/dL -- Normal range between ( 74 and 106 ) Blood Urea Nitrogen: 9 mg/dL -- Normal range between ( 7 and 22 ) Cardiac Specific Markers 07/29/18 22:32:00 Troponin I Ultra: <0.015 ng/mL -- Normal range between ( 0.015 and 0.045 ) Coagulation 07/29/18 21:02:00 D Dimer Quant: see comment mg/L FEU -- Normal range between ( 0.00 and 0.58 ) Medication Comment: Procedures: Laboratory Orders Name Status AutoDiff Completed BMP Completed CBCD Completed DIMERQT Completed TROPIULT Completed TROPIULT Completed XBLUE Ordered Radiology Orders Name Status CR Chest 2 Vws Ordered Cardiology Orders Name Status ECG Ordered This statement is to verify that RENE GREENBERG was seen at [facility] Emergency Department on ,07/30/2018 00:01:12. This is not a work excuse, if a work excuse was needed it will be in addition to this statement as a separate form. IMPORTANT: The examination and treatment you have received in the Emergency Department has been done to provide an appropriate evaluation and stabilizing treatment on an emergency basis only. Given the limited resources, it is not meant to be a substitute for complete medical care. The follow-up doctor you named will receive a copy of your records and all test reports. IT IS IMPORTANT THAT YOU SCHEDULE A FOLLOW-UP APPOINTMENT AND ARE RE-EVALUATED. You should report any new complaints, symptoms, or remaining problems at that time. IT IS IMPOSSIBLE FOR THE EMERGENCY DEPARTMENT TO RECOGNIZE AND TREAT ALL ELEMENTS OF INJURY OR ILLNESS IN A SINGLE VISIT. If you have been referred to a specialist physician, it means that we believe you may have a condition that requires the expertise of a specialist. KEEP IN MIND THAT THE SPECIALIST HAS HIS/HER OWN OFFICE POLICIES WHICH MAY REQUIRE PROPER INSURANCE OR PAYMENT UP FRONT BEFORE THE SPECIALIST WILL SEE YOU. It is your responsibility to call the specialist physician to make an appointment. We do not have the ability to identify specialists/physicians that work with specific insurance companies. Please be advised that all financial charges or billing practices are determined by that practice, not the hospital. If your insurance company requires that you see a specialist from their approved list, it is your responsibility to contact your insurance company to make those arrangements. It is also your responsibility to follow any other requirements of your insurance company necessary to obtain coverage for claims submitted. If you had special tests, such as EKG???s or X-rays, the interpretation of your tests given to you by the Emergency Dept. Physician is a preliminary report. Some fractures and illnesses fail to show up on preliminary tests. We will review them again within 24-48 hours. We will call you if there are any new suggestions. If your symptoms continue notify your physician. After you leave, you should follow the instructions below. In all events, you may obtain a copy of your Emergency Department visit from Medical Records. Please call to be directed to this department. We will bill your insurance; however, you are responsible today for any co-pay amounts. You will receive a separate bill for any services you may have received including: emergency, radiology, or pathology physicians. Please be sure we have an accurate contact phone number and address, should we need to call you for any reason. CIGARETTE SMOKING: The facts are clear; cigarette smoking will shorten your life. Smoking can cause many illnesses along the way. As a healthcare provider, [facility] recommends that you stop smoking. Assistance with quitting is available by contacting 4-347-OJAU-NOW. This is a free resource providing counseling, support, and referral. Or you may contact your personal physician. As part of your treatment plan, your physician may have prescribed a limited course of a controlled substance. This medication may be given to help people with moderate or severe pain or for other medical conditions, but there are risks involved with treatment. Common side effects may include nausea, constipation, drowsiness, sweating, itching, dry mouth, and rash. More serious side effects may include cognitive and motor impairment, like problems with thinking, concentrating, alertness, and movement (e.g. slowed reflexes), and driving and operating heavy machinery can be dangerous. It is important for you to talk to your physician if you have these side effects or questions. These controlled substances can produce physical dependence and be habit-forming if taken for an extended period of time, which means that the body has gotten used to them and may experience withdrawal symptoms if they are abruptly stopped. Withdrawal symptoms can include runny nose, sweating, goose bumps, diarrhea, abdominal cramping, rapid heartbeat, difficulty sleeping, and nervousness. The home medications listed are only as accurate as the information you provided. Please continue taking all of your medications prescribed by your Primary Care Provider unless specifically told to change or discontinue the medication. Please direct any questions regarding your home medications to your Primary Care Provider. YOU ARE THE MOST IMPORTANT FACTOR IN YOUR RECOVERY. ?? Follow your instructions carefully ?? Take your medicines as prescribed ?? Most important, see a provider as discussed. If you do not have a provider, we can provide a list of clinics Confidential This message and accompanying documents are covered by Electronic Communications Privacy Act 18 U.S.C. ???Sections 1725-0398,?? and contain information intended for the specified individual(s) only. This information is confidential. If you are not the intended recipient or an agent responsible for delivering it to the intended recipient, you are hereby notified that you have received the document in error and that any review, dissemination, copying, or the taking of any action based on the contents of this information is strictly prohibited. If you have received this communication in error, please notify us immediately by email, and delete the original message. 4 WAYS TO GET AHEAD OF SEPSIS SEPSIS is a MEDICAL EMERGENCY. Time matters! Infections put you and your family at risk for a life-threatening condition called sepsis. Sepsis is the body???s extreme response to an infection. It is life-threatening, and without timely treatment, sepsis can rapidly lead to tissue damage, organ failure, and . Sepsis happens when an infection you already have???in your skin, lungs, urinary tract or somewhere else???triggers a chain reaction throughout your body. 1 PREVENT INFECTIONS Take good care of chronic conditions. Talk to your doctor about getting the recommended vaccines. 2 PRACTICE GOOD HYGIENE Wash your hands frequently. Keep cuts or open sores clean and covered until they are healed. 3 KNOW THE SYMPTOMS Confusion or disorientation Shortness of breath High heart rate Fever, shivering, or feeling very cold Extreme pain or discomfort Clammy or sweaty skin 4 ACT FAST Get medical care IMMEDIATELY if you suspect sepsis or if you have an infection that???s not getting better or is getting worse. To learn more about sepsis and how to prevent infections, visit www.cdc.gov/sepsis. STROKE is an EMERGENCY Every Minute Counts ACT F.A.S.T! FACE ?? Facial droop ?? Uneven smile ARM ?? Arm numbness ?? Arm weakness SPEECH ?? Slurred speech ?? Difficulty speaking or understanding TIME ?? Call 911 and get to the hospital immediately Have the ambulance go to the nearest stroke center. STROKE Risk Factors High blood pressure High cholesterol Heart Disease Diabetes Smoking Heavy alcohol use Physical inactivity and obesity Atrial Fibrillation (irregular heartbeat) Family history of stroke Acknowledgment I hereby acknowledge receipt of these instructions and information above. I understand that I have received Emergency Treatment only which is not a substitute for complete medical care and acknowledge that all of my medical problems may not be known, identified, or treated prior to my release. I UNDERSTAND THE NEED TO ARRANGE FOLLOW-UP CARE WITH THE PHYSICIAN INDICATED. I UNDERSTAND THAT I SHOULD CONTACT MY PHYSICIAN IMMEDIATELY OR RETURN TO THE EMERGENCY DEPARTMENT IF MY CONDITION WORSENS, FAILS TO IMPROVE, OR NEW SYMPTOMS APPEAR. Vital Signs B/P PULSE RESP. RATE TEMPERATURE PULSE OX Signature of Emergency Provider Date / Time Signature of Emergency Nurse Date / Time Reminder: Be sure to sign up for the [facility] patient portal, which gives you 10/12 access to your medical information ??? including these discharge instructions ??? using your computer, smartphone, or tablet. Just go to [employer] to get started. Questions? Call . Acknowledgment I hereby acknowledge receipt of these instructions and information above. I understand that I have received Emergency Treatment only which is not a substitute for complete medical care and acknowledge that all of my medical problems may not be known, identified, or treated prior to my release. I UNDERSTAND THE NEED TO ARRANGE FOLLOW-UP CARE WITH THE PHYSICIAN INDICATED. I UNDERSTAND THAT I SHOULD CONTACT MY PHYSICIAN IMMEDIATELY OR RETURN TO THE EMERGENCY DEPARTMENT IF MY CONDITION WORSENS, FAILS TO IMPROVE, OR NEW SYMPTOMS APPEAR. Signature of Patient / Responsible Person Date / Time Please provide a telephone number where you can be reached. The best time to call is between: It is permissable to leave a message if no answer: Yes____ No____ Nurse Providing Instructions: Emergency Physician: documented in this encounter Plan of Treatment Not on file documented as of this encounter Visit Diagnoses Not on filedocumented in this encounter
--- OUTSIDE RECORDS SUMMARY | 2024-11-18 10:19 | XMS_ITS | Encounter Summary ---
Author Organization [employer] ([place], [place], [place], [place]) Address [address] [place] [address] Care Team Providers Care Etch Operator Semiconductor Wafers Name Role Phone Unavailable Primary Care Provider Unavailabl e Encounter Details Date Type Department Care Team (Late st Contact Info) Description 07/29/2018 Transcribed Document [facility] [place] [address] [place] [address] ProviderFlaquito MD [address], [place] [id number] Social History Tobacco Use Types Packs/Day Years Used Date Smoking Tobacco: Never Assessed Sex and Gender Information Value Date Recorded Sex Assigned at Not on file Legal Sex Male 1:20 PM CDT Gender Identity Not on file Sexual Orientation Not on file documented as of this encounter Miscellaneous Notes * Cerner Conversion Note - Flaquito ProviderMD - 07/29/2018 8:54 PM CDT Patient: RENE GREENBERG Age: 57 years Sex: Male : 1960 Associated Diagnoses: Chest wall pain Author: DOMONIQUE MEIER MD Basic Information Time seen: Date & time 07/29/2018 20:54:00. History source: Patient. Arrival mode: Private vehicle. History limitation: None. Additional information: Chief Complaint from Nursing Triage Note : Chief Complaint 07/29/2018 19:14 EDT Chief Complaint patient with complaints of bilateral shoulder pain,cough, nausea/vomiting and increased heart rate that started yesterday. . History of Present Illness This is a 57-year-old male with a past medical history significant for hypertension, hyperlipidemia, diabetes mellitus who presents to the emergency department for left chest wall pain that extends into the axilla and shoulder. This started happening yesterday and has been occurring intermittently. He has also had a cough over the last several days with several episodes of posttussive emesis and some intermittent vomiting as well. No objective fevers, but he does complain of generalized malaise. He does not have any shortness of breath. He has no known history of coronary artery disease. He is concerned because he has had 4 friends in their sleep within the last several months. Pain in the chest is aching and worse with movement, better with rest. His chest wall is tender, he has not noticed any rash. He denies any known injury to the chest wall. Review of Systems Additional review of systems information: 10 point review of systems reviewed and negative except as stated in history of present illness . Health Status Allergies: Allergic Reactions (Selected) No Known Allergies. Medications: (Selected) Prescriptions Prescribed Crestor 10 mg oral tablet: 1 Tab, Oral, At Bedtime, 30 Tab, 0 Refill(s) Xarelto 20 mg oral tablet: 1 Tab, Oral, QPM, for 30 Day(s), 30 Tab, 11 Refill(s) aspirin 81 mg oral tablet: 1 Tab, Oral, Daily, 100 Tab, 0 Refill(s) bisoprolol 5 mg oral tablet: 1 Tab, Oral, Daily, 30 Tab, 0 Refill(s) Documented Medications Documented Uloric 40 mg oral tablet: 1 Tab, Oral, Daily, 30 Tab, 0 Refill(s) Vitamin D2 50,000 intl units (1.25 mg) oral capsule: 1 Cap, Oral, Saturday, 0 Refill(s) bumetanide 1 mg oral tablet: 2 Tab, Oral, With Dinner, 0 Refill(s) isosorbide mononitrate 30 mg oral tablet, extended release: 1 Tab, Oral, QAM, 30 Tab, 0 Refill(s) lisinopril 10 mg oral tablet: 1 Tab, Oral, Daily, 30 Tab, 0 Refill(s) metFORMIN 500 mg oral tablet: 1 Tab, Oral, BID, 60 Tab, 0 Refill(s), per nurse's notes. Immunizations: Per nurse's notes. Past Medical/ Family/ Social History Medical history Reviewed as documented in chart. Surgical history: Reviewed as documented in chart. Family history: Reviewed as documented in chart. Social history: Reviewed as documented in chart. Problem list: Active Problems (8) Atrial fibrillation with RVR CAD (coronary artery disease) Chest pain Diabetes Gout High cholesterol HTN (hypertension) Palpitations , per nurse's notes. Physical Examination Vital Signs Vital Signs/Vital Measures 07/29/2018 22:00 EDT Heart Rate Monitored 96 bpm Respiratory Rate 18 Breaths/Min Oxygen Saturation 97 % Oxygen Therapy Mode Room air 07/29/2018 21:30 EDT Heart Rate Monitored 92 bpm Respiratory Rate 22 Breaths/Min HI Systolic Blood Pressure 145 mmHg HI Diastolic Blood Pressure 94 mmHg HI Mean Arterial Pressure (MAP)-BMDI 111 Oxygen Saturation 98 % Oxygen Therapy Mode Room air 07/29/2018 21:00 EDT Heart Rate Monitored 94 bpm Respiratory Rate 19 Breaths/Min Oxygen Saturation 96 % Oxygen Therapy Mode Room air 07/29/2018 19:14 EDT Temperature Source Oral Temperature Mode Fahrenheit Temperature, Fahrenheit 98.0 Deg F Clinical Temperature, C 36.7 Deg C Peripheral Pulse Rate 112 bpm HI Respiratory Rate 19 Breaths/Min Systolic Blood Pressure 159 mmHg HI Diastolic Blood Pressure 96 mmHg HI Oxygen Saturation 96 % Oxygen Therapy Mode Room air . Per nurse's notes. General: Alert, no acute distress. Skin: Warm, dry. Head: Normocephalic. Neck: Supple. Ears, nose, mouth and throat: Oral mucosa moist. Cardiovascular: Regular rate and rhythm, No murmur. Respiratory: Lungs are clear to auscultation, respirations are non-labored, breath sounds are equal. Chest wall: No deformity, Tenderness along the left chest wall extending through the shoulder. No crepitus, signs of trauma, no rash. No deformity.. Gastrointestinal: Soft, Nontender, Non distended. Neurological: Normal speech observed, normal coordination observed. Psychiatric: Cooperative. Medical Decision Making Documents reviewed: Emergency department nurses' notes, prior records. Electrocardiogram: Time 07/29/2018 19:22:00, rate 110, No ST changes, normal FL & QRS intervals, EP Interp, No NSTEMI, Repeat EKG at 2227 shows a normal sinus rhythm with a rate of 94. No acute ST segment elevation or depression. No hyperacute T waves. Normal intervals. EKG interpreted by me.. Results review: Lab results : Lab Results 07/29/2018 22:32 EDT Troponin I Ultra <0.015 ng/mL 07/29/2018 21:02 EDT D Dimer Quant see comment mg/L FEU 07/29/2018 19:30 EDT Sodium Level 137 mmol/L Potassium Level 4.1 mmol/L Chloride Level 105 mmol/L Carbon Dioxide Level 28 mmol/L Anion Gap 8 LOW Glucose Level 144 mg/dL HI Blood Urea Nitrogen 9 mg/dL CREATININE 1.20 mg/dL eGFR >60 mL/min/1.73m2 eGFR NonAfrican >60 mL/min/1.73m2 Bun/Creatinine 7.5 LOW Calcium Level 9.6 mg/dL Troponin I Ultra <0.015 ng/mL WBC 10.2 K/uL HI RBC 5.34 Million/uL Hgb 16.6 g/dL Hct 47.3 % MCV 88.6 fL MCH 31.1 pg MCHC 35.1 Gram/dL Platelet Count 271 K/uL MPV 11.4 fL RDW 12.6 % Neut % 66.5 % Neut # 6.81 K/uL HI Lymph % 20.3 % Lymph # 2.08 x10(3)/uL [place] % 7.8 % [place] # 0.80 K/uL Eos % 4.4 % Eos # 0.45 x10(3)/uL Baso % 0.8 % Baso # 0.08 x10(3)/uL Slide Review No IG# 0.02 x10(3)/uL IG% 0.20 % . Notes: This patient has a HEART score less than 3 which indicates less than 1.7% risk of major adverse cardiac event in the next 30 days. D-dimer negative, so unlikely pulmonary embolus. Chest x-ray shows no signs of pneumonia, pneumothorax, widened mediastinum that would suggest dissection, or new cardiomegaly, no florid pulmonary edema. Patient has no history of structural heart disease and troponins ??2 with a three-hour delta are negative. Chest pain is very atypical, seems muscular in nature with reproducible symptoms. Appropriate for outpatient cardiology follow-up within the next 3 days. Plan is discussed in full with patient who expresses understanding and willingness to adhere to plan.. Impression and Plan Diagnosis Chest wall pain - Discharge, Medical Plan Condition: Stable. Disposition: Discharged Admit/Transfer/Discharge: Discharge (Order): Start: 07/29/2018 23:21 EDT, Discharge to: Home. Patient was given the following educational materials: Chest Wall Pain. Follow up with: [facility] Within 2 to 3 days Please contact the Patient Resource Center at if you need assistance scheduling a Specialist or Primary Care Provider in the future.; ; [facility]ON[facility] Within 2 to 3 days. Counseled: Patient, Family, Regarding diagnosis, Regarding diagnostic results, Regarding treatment plan, Patient indicated understanding of instructions. documented in this encounter Plan of Treatment Not on file documented as of this encounter Visit Diagnoses Not on filedocumented in this encounter
--- OUTSIDE RECORDS SUMMARY | 2024-11-18 10:19 | XMS_ITS | Clinical Summary ---
Author Organization [employer] ([place], [place], [place], [place]) Address [address] [place] [address] Care Team Providers Care Patient Scheduler Name Role Phone Unavailable Primary Care Provider [...]
[2024-11-18 10:41] LABS: INR 1.00 (0.9-1.1); Prothrombin Time 11.1 seconds (10.1-12.5)
== END 2024-11-18 23:59 | disposition home or self-care (01) ==
LOC: LAB 10:03
PROVIDERS: PCP Family Medicine; Visit Provider Orthopaedic Surgery
DX: Z01.818 Encounter for other preprocedural examination (principal)
CPT/HCPCS: 36415; 85610

== ENCOUNTER 2024-12-16 09:00 | Outpatient (RCR) | payer BC, SELFPAY | END 2024-12-16 23:59 | disposition home or self-care (01) | LOC: PT 09:00 | PROVIDERS: PCP Family Medicine; Visit Provider Orthopaedic Surgery | DX: M16.12 Unilateral primary osteoarthritis, left hip (principal) | CPT/HCPCS: 97110; 97161; 97530 ==

== ENCOUNTER 2024-12-24 08:00 | Outpatient (RCR) | payer BC, SELFPAY | END 2024-12-24 23:59 | disposition home or self-care (01) | LOC: PT 08:00 | PROVIDERS: PCP Family Medicine; Visit Provider Orthopaedic Surgery | DX: M16.12 Unilateral primary osteoarthritis, left hip (principal) | CPT/HCPCS: 97110 ==